=== PATIENT | male | born 1960 | race Caucasian/White ===

== ENCOUNTER 2024-04-11 07:56 | Inpatient (IN) ==
--- NOTE | 2024-04-01 15:36 | PAT Medication Instructions ---
Medication Instructions Date of Service April 01, 2024 Home Medications acetaminophen 500 mg capsule 1,000 mg PO Q6H PRN amlodipine 2.5 mg tablet (Norvasc) 2.5 mg PO HS ascorbic acid (vitamin C) 1,000 mg tablet (Vitamin C) 1 g PO QAM aspirin 81 mg tablet,delayed release 81 mg PO QAM cetirizine 10 mg tablet (Zyrtec) 10 mg PO QAM cholecalciferol (vitamin D3) 25 mcg (1,000 unit) tablet (Vitamin D3) 25 mcg PO QAM cyclobenzaprine 10 mg tablet 10 mg PO TID diclofenac sodium 1 % topical gel 2 g topical QID PRN diclofenac sodium 75 mg tablet,delayed release 75 mg PO BID escitalopram oxalate 10 mg tablet (Lexapro) 10 mg PO QAM famotidine 40 mg tablet (Pepcid) 40 mg PO HS lidocaine 5 % topical patch 1 patch topical DAILY PRN lisinopril 20 mg-hydrochlorothiazide 25 mg tablet 1 tab PO QAM metronidazole 0.75 % topical gel 1 applic topical DAILY PRN pregabalin 50 mg capsule (Lyrica) 50 mg PO BID simvastatin 10 mg tablet 10 mg PO HS ASK your surgeon for instructions diclofenac sodium 75 mg tablet,delayed release 75 mg PO BID ASK your prescriber and surgeon aspirin 81 mg tablet,delayed release 81 mg PO QAM STOP taking 24 hours before surgery diclofenac sodium 1 % topical gel 2 g topical QID PRN lidocaine 5 % topical patch 1 patch topical DAILY PRN metronidazole 0.75 % topical gel 1 applic topical DAILY PRN DO NOT take the morning of surgery ascorbic acid (vitamin C) 1,000 mg tablet (Vitamin C) 1 g PO QAM cetirizine 10 mg tablet (Zyrtec) 10 mg PO QAM cholecalciferol (vitamin D3) 25 mcg (1,000 unit) tablet (Vitamin D3) 25 mcg PO QAM lisinopril 20 mg-hydrochlorothiazide 25 mg tablet 1 tab PO QAM Take morning of surgery With a small sip of water, OTHERWISE NOTHING TO EAT OR DRINK AFTER MIDNIGHT: acetaminophen 500 mg capsule 1,000 mg PO Q6H PRN(if needed) cyclobenzaprine 10 mg tablet 10 mg PO TID escitalopram oxalate 10 mg tablet (Lexapro) 10 mg PO QAM pregabalin 50 mg capsule (Lyrica) 50 mg PO BID Take evening before surgery acetaminophen 500 mg capsule 1,000 mg PO Q6H PRN(if needed) amlodipine 2.5 mg tablet (Norvasc) 2.5 mg PO HS cyclobenzaprine 10 mg tablet 10 mg PO TID famotidine 40 mg tablet (Pepcid) 40 mg PO HS pregabalin 50 mg capsule (Lyrica) 50 mg PO BID simvastatin 10 mg tablet 10 mg PO HS Other Notes If you have any questions please call us at [phone] or [phone] or [phone] or [phone]
--- NOTE | 2024-04-03 13:35 | Anesthesiology Consultation ---
Date of Service April 03, 2024 Assessment & Plan (1) Encounter for pre-operative examination: - patient states he elected to set up a medical clearance 04/04/24, AKHIL Szymanski. Chart Review Chart Review: Pending: Refer to Additional Notes / Consult section and Patient seen in Pre Admission Testing Teaching & Discussion Pre-Anesthesia Teaching/Discussion Notes: Instructed NPO after midnight before surgery, except medications with 15 cc of water. Medication instructions provided according to the PAT guidelines. History Surgery Operation Date: 04/11/24 12:25 Proposed Procedures p L5-S1 Decompression and Fusion with Possible L4-L5, Spinal Cord Monitoring - Bruno Bernard, Height/Weight Height: 5 ft 11 in Weight: 142.5 kg Allergies Allergy/AdvReac Type Severity Reaction Status Date / Time alprazolam [From Xanax] AdvReac mood Verified 04/01/24 13:32 changes, angry, irritated Medications Home Medications Medication Instructions Recorded Confirmed Last Taken acetaminophen 500 mg capsule 1,000 mg PO Q6H PRN Pain 04/01/24 04/01/24 Unknown amlodipine 2.5 mg tablet (Norvasc) 2.5 mg PO HS 04/01/24 04/01/24 Unknown ascorbic acid (vitamin C) 1,000 mg 1 g PO QAM 04/01/24 04/01/24 Unknown tablet (Vitamin C) aspirin 81 mg tablet,delayed 81 mg PO QAM 04/01/24 04/01/24 Unknown release cetirizine 10 mg tablet (Zyrtec) 10 mg PO QAM 04/01/24 04/01/24 Unknown cholecalciferol (vitamin D3) 25 25 mcg PO QAM 04/01/24 04/01/24 Unknown mcg (1,000 unit) tablet (Vitamin D3) cyclobenzaprine 10 mg tablet 10 mg PO TID 04/01/24 04/01/24 Unknown diclofenac sodium 1 % topical gel 2 g topical QID PRN Pain 04/01/24 04/01/24 Unknown diclofenac sodium 75 mg 75 mg PO BID 04/01/24 04/01/24 Unknown tablet,delayed release escitalopram oxalate 10 mg tablet 10 mg PO QAM 04/01/24 04/01/24 Unknown (Lexapro) famotidine 40 mg tablet (Pepcid) 40 mg PO HS 04/01/24 04/01/24 Unknown lidocaine 5 % topical patch 1 patch topical DAILY PRN Pain 04/01/24 04/01/24 Unknown lisinopril 20 1 tab PO QAM 04/01/24 04/01/24 Unknown mg-hydrochlorothiazide 25 mg tablet metronidazole 0.75 % topical gel 1 applic topical DAILY PRN rosacea 04/01/24 04/01/24 Unknown pregabalin 50 mg capsule (Lyrica) 50 mg PO BID 04/01/24 04/01/24 Unknown simvastatin 10 mg tablet 10 mg PO HS 04/01/24 04/01/24 Unknown Past Medical History Medical History Anxiety and depression Difficult intravenous access Environmental and seasonal allergies GERD (gastroesophageal reflux disease) controlled, stable per pt Hyperlipidemia Hypertension controlled, stable per pt Lumbosacral radiculopathy Prediabetes diet controlled Pulmonary embolism 08/2023, 2/2 immobility for extended time, was on eliquis until 02/22/23 and [facility] puller over told him he would need to go back on the eliquis following his upcoming back surgery; f/u [facility] hematology Rosacea Sleep apnea CPAP, set at 9 Patient denies h/o stroke, seizures, heart attack, heart failure, or blood transfusions. Exercise / Class Metabolic Activity III < 4 Walking/Shop/Light housework (ambulates with walker, denies chest discomfort or shortness of breath with usual activities) Past Surgical History Surgical History History of colonoscopy Hx of left inguinal hernia repair Hx of right inguinal hernia repair Hx of vasectomy Status post myringotomy with tube placement of both ears Past Anesthesia History No Family Hx of Anesthesia Complications and Other (sister slow to wake up) History of PONV No Hx of PONV and No Hx of Motion Sickness Social History Smoking Status: Never smoker Do You Dip or Chew Tobacco: Yes (2-3 cans/week; advised) Hx Alcohol Use: Yes Alcohol type: beer alcohol intake frequency: holidays/special occasions only Hx Substance Use: No substance use type: does not use Review of Systems Patient denies chest pain, shortness of breath, dyspnea on exertion, fever, chills, cough, wheezing, or palpitations. Physical Exam Vital Signs Vitals BP 121/78 P 74 SP02 97% on RA RESP 18 Physical Patient resting comfortably in chair in no acute distress, alert and oriented, responding appropriately throughout visit Full cervical extension range of motion without pain TMD < 3 finger breadths Mallampati Score 3 Dentition: one cap and one broken tooth, denies loose teeth, implants or bridges Lungs: normal respiratory effort. Good air movement, clear throughout to auscultation, no adventitious breath sounds Cardiac: regular rate and rhythm, no murmurs noted Carotid arteries: negative bruit bilat Lab Results Anesthesia Preop Results Results Anesthesia Widget: WBC 5.96 K/ul (4.8-10.8) 04/03/24 Hgb 14.9 g/dl (14.0-18.0) 04/03/24 Hct 45.4 % (42.0-52.0) 04/03/24 Plt 254 K/uL (130-400) 04/03/24 Na 139 mmol/L (136-145) 04/03/24 K 4.3 mmol/L (3.5-5.1) 04/03/24 Cl 102 mmol/L (98-107) 04/03/24 CO2 32 mmol/L (21-32) 04/03/24 BUN 15 mg/dl (6-23) 04/03/24 Creat 0.92 mg/dl (0.6-1.4) 04/03/24 Glucose Level 98 mg/dl (70-99(Fasting)) 04/03/24 PT 10.9 Seconds (9.0-12.0) 04/03/24 PTT 25 Seconds (21-31) 04/03/24 INR 1.0 (0.9-1.1) 04/03/24 HA1c 5.8 % (4.5-5.6) H 04/03/24 Urine Color Yellow 04/03/24 Urine Appearance Clear (Clear) 04/03/24 Urine pH 6.5 (4.5-7.5) 04/03/24 Urine Specific Gillespie 1.009 (1.000-1.030) 04/03/24 Urine Protein Negative (Negative) 04/03/24 Urine Glucose (UA) Negative (Negative) 04/03/24 Urine Ketones Negative (Negative) 04/03/24 Urine Blood Negative (Negative) 04/03/24 Urine Nitrite Negative (Negative) 04/03/24 Urine Bilirubin Negative (Negative) 04/03/24 Urine Urobilinogen Negative (Negative) 04/03/24 Urine Leukocyte Esterase Negative (Negative) 04/03/24 Blood Type A Positive 04/03/24 Antibody Screen NEGATIVE 04/03/24 Testing Electrocardiogram Date: 08/26/23 NSR, rate 87 bpm Chest X-Ray Date: 08/26/23 No dense parenchymal consolidation, pleural effusion or pneumothorax. Other Testing PE CT 08/26/23 Predominantly right-sided lobar, segmental and subsegmental PE without evidence for right heart strain.
--- OUTSIDE RECORDS SUMMARY | 2024-04-11 08:39 | External Medical Summary | Summary of Care ---
Author Name Unknown Organization [facility] [address] [facility] [address] Phone [phone] Care Team Providers Care Transport Medic Name Role Phone Robert Szymanski MD Primary Care Provider Reason for Visit * Reason Onset Date Comments Nurse Documentation 04/10/2024 Encounter Details Date Type Department Care Team (Late st Contact Info) Description 04/10/2024 Telephone [facility] [place] [address] [facility] [place] [phone] Robert Szymanski MD 21 [facility] [place] [address] Nurse Documentation Allergies Active Allergy Reactions Criticality Noted Date Comments Benzodiazepines 01/15/2002 xanax - altered mood documented as of this encounter (statuses as of 04/10/2024) Medications Medication Sig Dispensed Refills Start Date End Date Status ASPIRIN EC 81 MG PO TBECIndications:HTN, goal below 140/90 1 TABLET DAILY 100 0 05/01/2007 Active Cholecalciferol (VITAMIN D) 1000 UNITS Tablet Take 1 Tablet by mouth in the morning and 1 Tablet before bedtime. Active cetirizine (ZYRTEC) 10 MG Tablet Take 1 Tablet by mouth in the morning. Active Sildenafil Citrate 100 MG Oral Tablet (Viagra) Take 1 Tab by mouth daily as needed for Erectile Dysfunction. As directed. 30 Tab 3 05/18/2021 Active Vitamin C ER 1000-100 MG Oral Tablet Extended Release Take by mouth. Acti ve Escitalopram Oxalate 10 MG Oral Tablet (Lexapro)Indications: Anxiety disorder, unspecified type Take 1 Tablet by mouth in the morning. 90 Tablet 3 10/15/2023 Active Acetaminophen 325 MG Oral Tablet (Tylenol) Take 1 Tablet by mouth as needed. Active Diclofenac Sodium 75 MG Oral Tablet Delayed Release (Voltaren)Indications :Spinal stenosis of lumbar region with neurogenic claudication Take 1 Tablet by mouth in the morning and 1 Tablet before bedtime. 180 Tablet 1 12/06/2023 Active Simvastatin 10 MG Oral Tablet (Zocor)Indications:Dy slipidemia TAKE 1 TABLET BY MOUTH EVERYDAY AT BEDTIME 90 Tablet 3 12/20/2023 Active Famotidine 40 MG Oral Tablet (Pepcid) TAKE 1 TABLET BY MOUTH EVERYDAY AT BEDTIME 90 Tablet 3 12/20/2023 Active metroNIDAZOLE 0.75 % External Gel (Metrogel)Indications :Rosacea Apply topically to affected area 2 times a day. Apply to face 45 g 2 12/28/2023 Active amLODIPine Besylate 2.5 MG Oral Tablet (Norvasc)Indications: HTN, goal below 140/90 TAKE 1 TABLET BY MOUTH EVERY DAY IN THE MORNING 90 Tablet 4 02/22/2024 Active Cyclobenzaprine HCl 10 MG Oral Tablet (Flexeril)Indications :Back muscle spasm TAKE 1 TABLET BY MOUTH IN THE MORNING, 1 AT NOON AND 1 BEFORE BEDTIME 90 Tablet 1 02/25/2024 Active Pregabalin 50 MG Oral Capsule (Lyrica)Indications:S ramses stenosis of lumbar region with neurogenic claudication Take 1 Capsule by mouth in the morning and 1 Capsule before bedtime. 60 Capsule 1 03/25/2024 Active Lidocaine 5 % External Patch (Lidoderm)Indications :Lumbar radiculopathy PLACE 1 PATCH OVER 12 HOURS TOPICALLY ON THE SKIN DAILY. 30 Patch 04/03/2024 Active Lisinopril-hydroCHLOR Othiazide 20-25 MG Oral TabletIndications:HTN , goal below 140/80 TAKE 1 TABLET BY MOUTH EVERY DAY 90 Tablet 3 04/01/2024 Active Diclofenac Sodium 1 % External Gel (Voltaren)Indications :Arthritis of knee Apply topically to affected area 2 times a day as needed for Pain, Mild. Apply to knees 150 g 3 04/04/2024 Active documented as of this encounter (statuses as of 04/10/2024) Active Problems Problem Noted Date Diagnosed Date Lumbar radiculopathy 12/06/2023 Spinal stenosis of lumbar re gion with neurogenic claudication 12/06/2023 Prediabetes 08/23/2020 Overview: Per Prediabetes protocol Morbid obesity with BMI of 45.0-49.9, adult 07/11 Overview: Per Obesity protocol #1 - Per Obesity Taxonomy ICD-10 update of inactive term MARGIE on CPAP 11/17/2014 Low testosterone 01/14/2014 Dyslipidemia 01/13/2014 Vitamin D deficiency 01/13/2012 Overview: Add oral 01/19 HTN, goal below 140/90 07/11/2010 Overview: Lisinopril hct. Basic, ua 07/21 Shoulder joint pain 05/01/2007 Overview: Ibuprofen prn 06/16 neg EMG. NOrmal MRI cspine . PT helped and decreasing chol med Tobacco use disorder 04/30/2007 Overview: Chew. Ua 09/19 DIVERTICULOSIS OF COLON 07/17/2006 Overview: Found on colonoscopy-07/09/06 HEMORRHOIDS, INTERNAL W/O COMPLICATIONS 07/17/20 Overview: Found on colonoscopy 07/09/06 Esophageal reflux Overview: Ranitidine prn documented as of this encounter (statuses as of 04/10/2024) Resolved Problems Problem Noted Date Diagnosed Date Resolved Date Acute anterior epistaxis 01/14/2019 Body mass index (BMI) of 40. 0 to 44.9 in adult 01/29/2018 07/26/2018 Overview: Per Obesity protocol #1 - Per Obesity Taxonomy ICD-10 update of inactive term Left inguinal hernia 03/01/2015 018 Dyslipidemia, goal LDL below 130 07/09/2013 01/13/2014 MARGIE (obstructive sleep apnea) 01/10/2012 07/10/2018 Overview: 12/20 mod but severe during REM. Severe snoring and desat. CPAP Respiratory abnormality 01/04/201212/09 Overview: 12/20 spirogram mild obstuction, no response to bronchodilator. Small airway involvement. ICD-10 update of inactive term Edema 02/18/2010 12/19/2017 Overview: Remote sleep eval. 02/17 noct pulse ox resembled margie with drop to 71%; repeat 01/18 similar. Echo mild left atrial and left ventricular enlargement. USing cpap Body mass index (BMI) of 45.0-49.9 in adult 12/07/2009 01/31/2018 Overview: Per Obesity Taxonomy ICD-10 update of inactive term Urinary frequency 04/07/2008 06/20/2017 Overview: Urology. Cardura- self d/c due to orthostasis Family history of diabetes mellitus 05/01/2007 01/05/2009 Hemorrhage of rectum and anus 07/17/2006 05/01/2007 Overview: [id number] [id number]-[id number]-Sbgrv 2 internal hemorrhoids Diverticulosis of the sigmoid colon Repeat in 10 years Dyslipidemia, goal LDL below 100 04/22/2003 07/09/2013 Overview: Zocor 20 myalgia. Try 10 mg Morbid obesity, BMI not known 12/09/2002 12/07/2009 Overview: Per Obesity Taxonomy Cervicalgia 08/09/2007 Carpal tunnel syndrome 10/09 Overview: Paressthesias, but EMG Neg. Splints HTN, goal below 130/80 07/11 Overview: Lisinopril-hct, asa. Basic, UA 09/19 documented as of this encounter (statuses as of 04/10/2024) Immunizations Name Administration Dates Next Due COVID-19 mRNA, LNP-s, No Pre serve, 2-Dose Series (Workables) 07/30/2021,12/21/2020,11/26/2020 COVID-19, LNP-s, No Preserve , Conrad-sucrose, Ages 12+ (Pfizer) 01/17/2022 Covid-19, Mrna, Lnp-s, Pf, B ivalent, 30 Mcg, IM, 12 yrs and above (Pfizer) 06/29/2022 Pneumococcal Polysaccharide PPV23 (Pneumovax) 06/13/2006 Seasonal Influenza, PF, 6 M & above, IM , (FluLaval or Fluzone) 06/18/2023,07/15/2022,07/18/2021,07/14,07/29/2019,07/10/2018,06/20/2017 Seasonal Influenza, Quadriva lent, No Preserve, IM 06/07/2016,06/23/2015 Seasonal Influenza, Split, I IV3, With Preserve, Inj 07/22/2014,07/09/2013,07/26/2011,07/11,06/22/2008,06/13/2006 TDAP (age 10 and older)(Boostrix) 06/20/2017 TDAP, Age 7 and older, IM (Adacel) 04/08/2008 Zoster Vaccine Recombinant (Shingrix) 01/15/2020 ,10/14/2019 documented as of this encounter Social History Tobacco Use Types Packs/Day Years Used Date Smoking Tobacco: Never Cigarettes Smokeless Tobacco: Current Snuff Comments:Chew Alcohol Use Standard Drinks/Week Comments Yes 2 (1 standard drink = 0.6 oz pur e alcohol) AUDIT-C Answer Date Recorded Frequency of Alcohol Consumption 4 or more times a week 01/07/2019 Average Number of Drinks 1 or 2 019 Frequency of Binge Drinking Less than monthly PHQ-2 Answer Date Recorded PHQ Adult Total Score 0 06/18/2023 Hunger Vital Sign Answer Date Recorded Within the past 12 months, y ou worried that your food would run out before you got the money to buy more. Never true 01/25/20 24 Within the past 12 months, t he food you bought just didn't last and you didn't have money to get more. Never true 01/25/2024 Childcare Answer Date Recorded Do you feel overwhelmed with taking care of a child, family member or friend? No 01/25/2024 Does your family need help f inding childcare? (Household - for ages 0-17 years) Not on file 01/25/2024 Clothing Answer Date Recorded Have you been unable to get clothing when it was really needed? No 01/25/2024 Is your family able to get c lothes or diapers when needed? (Household - for ages 0-17 years) Not on file 01/25/2024 Personal Safety Answer Date Recorded Do you feel unsafe or have concerns for your saf ety? No 01/25/2024 Do you have concerns for you r family's safety? (Household - for ages 0-17 years) Not on file 01/25/2024 Utilities Answer Date Recorded Do you have trouble paying y our heating, water, or electric bill? No 01/25/2024 Is your family able to pay t he heat, water, or electric bill? (Household - for ages 0-17 years) Not on file 01/25/2024 Does your family have access to good internet? (Household - for ages 0-17 years) Not on file 01/25/2024 Employment Status Answer Date Recorded Are you unemployed or without regular income? No 01/25/2024 Does the household have a re gular source of income? (Household - for ages 0-17 years) Not on file 01/25/2024 Social Connections Answer Date Recorded How often do you feel lonely or isolated from th ose around you? Never 01/25/2024 Financial Resource Strain Answer Date R ecorded Do you have any trouble payi ng for your medications, or do you think you might in the future? No 01/25/2024 Does your family have troubl e paying for medicine? (Household - for ages 0-17 years) Not on file 01/25/2024 Transportation Needs Answer Date Record ed READ ONLY Do you have troubl e getting a ride to medical visits or work? Never True 01/25/2024 Does your family have a hard time getting a ride to doctors visits? (Household - for ages 0-17 years) Not on file 01/25/2024 Has lack of transportation k ept you from medical appointments, meetings, work, or from getting things needed for daily living? Check all that apply. (Adult - for ages 18 years and over) Not on file 01/25/2024 Do you (or your family) have trouble finding or paying for a ride (transportation)? (Household - for ages 0-17 years) Not on file 01/25/2024 Housing Stability Answer Date Recorded Do you currently live in a s helter or have no steady place to sleep at night? No 01/25/2024 READ ONLY Do you think you a re at risk of becoming homeless? No 01/25/2024 Does your family worry about paying for your home or becoming homeless? (Household - for ages 0-17 years) Not on file 0 01/25/2024 Are you homeless or worried that you might be in the future? (Adult - for ages 18 years and over) Not on file Are you (or your family) janeen eless or worried that you might be in the future? (Household - for ages 0-17 years) Not on file Food Insecurity Answer Date Recorded Do you need food for this week? No 01/25/2024 Are you able to get enough f ood for your family? (Household - for ages 0-17 years) Not on file 01/25/2024 Does your family need food t his week? (Household - for ages 0-17 years) Not on file 01/25/2024 Do you always have enough fo od for your family? (Household - for ages 0-17 years) Not on file 01/25/2024 Sex and Gender Information Value Date Recorded Sex Assigned at Male 01/07/2019 5:44 PM EDT Gender Identity Male 01/07/2019 5:44 PM EDT Sexual Orientation Straight 01/07/2019 5: 44 PM EDT Job Start Date Occupation Industry Not on file Not on file Not on file documented as of this encounter Miscellaneous Notes * Telephone Encounter - Adela Rodriguez CMA - 04/10/2024 2:34 PM EDT Pt had pre op appt with Annabel on 04/04. Form was completed and faxed by Dariela Mcdaniel LPN that day. I received a duplicate pre op form for this pt. Form not yet in scans. Called [facility] and spoke with Bety who advised that they have everything they need including completed pre op form. The duplicate form is not needed and can be shredded. documented in this encounter Plan of Treatment Upcoming Encounters Date Type Department Care Team (Late st Contact Info) Description 05/14/2024 8:00 AM EDT Laboratory Laboratory, [facility] [address] [place] [phone] [facility], Lab [address] [place] [id number] 05/28/2024 8:00 AM EDT Office Visit Pharmacy, [place] [address] [place] [address] [place] [facility] [address] [place] [address] 06/04/2024 9:00 AM EDT Telemedicine Hematology/Oncology, [facility] [address] [place] [address] Lion Hernández MD [address] [place] [phone] 06/13/2024 2:40 PM EDT Office Visit [facility] [address] [facility] [phone] Robert Szymans[facility] [address] [facility] [address] 09/08/2024 7:45 AM EST Office Visit Ophthalmology, [facility] [address] [facility] [place] [address] Cessna, Christopher T, DO [address] [place] [address] 01/14/2025 12:50 PM EDT Office Visit Dermatology, [facility] [address] [place] [address] [place] [address] Abril Garrett PA-C [address] [place] [address] Scheduled Procedures Name Priority Associated Diagnoses Date/Ti me COLONOSCOPY FLEXIBLE PROXIMAL DIAGNOSTIC Recall History of colon polyps Health Maintenance Due Date Last Done Comments HIV Screening 1976 Hepatitis C Screening 11/19/1979 Cologuard 2006 Sigmoidoscopy 2006 Fecal Occult Blood Test 03/05/2021 03/05/2020, 06/14 Albumin/Creatinine Ratio 07/29/2022 07/29/2019 COVID-19 Vaccine ( season) 2023 06/29/2022, 01/17/2022, 07/30/2021, Additional history exists Influenza Vaccine (FLU shot) (#1) 2024 06/18/2023, 07/15/2022, 07/18/2021, Additional history exists Depression Screening 06/18/2024 06/18/2023 HbA1c 12/04/2024 12/05/2023, 09/10, 06/18/2023, Additional history exists GFR 12/05/2024 12/06/2023, 11/09, 08/26/2023, Additional history exists DTaP,Tdap,and Td Vaccines (3 - Td or Tdap) 06/20/2027 06/20/2017, 04/08/2008 Colonoscopy 05/07/2028 05/07/2023, 04/11, 07/07/2016, Additional history exists Colorectal Cancer Screening 05/07/2028 Lipid Panel 12/04/2028 12/05/2023, 05/2023, 06/11/2021, Additional history exists Pneumococcal Vaccine: Pediatrics (0 to 5 Years) and At-Risk Patients (6 to 64 Years) Aged Out 06/13/2006 No longer eligible based on patient's age to complete this topic Zoster Vaccines Completed 01/15/2020, 10/14/2019 RETIRED - COLONOSCOPY-EVERY 5 YRS AGES 18-100 Discontinued 05/07/2023, 05/07/2023, 07/07/2016, Additional history exists HPV (Gardasil) Vaccine Aged Out No lo nger eligible based on patient's age to complete this topic Hepatitis B Vaccine Aged Out No longe r eligible based on patient's age to complete this topic MENINGOCOCCAL (MENACTRA/MENVEO) Aged Out No longer eligible based on patient's age to complete this topic documented as of this encounter Medical Devices Implanted Type Area Geriatric Aide Device Identifier Shelf Expiration Date Model / Serial / Lot Mesh [id number] Implanted:Qty: 1 on 03/01/2015 by Bruno Cifuentes MD at [facility] Left: Groin [employer] / [id number] / [id number] documented as of this encounter Advance Directives Documents on File Type Date Recorded Patient Rehabilitator Expl anation Advance Directives and Living Will 04/05/2018 LIVING WILL LETTER O F MEDICAL NECESSITY FLEX GAR FLEX IT * Full Code (Latest Code Status on File) Date Activated Date Inactivated Comments 05/07/2023 11:15 AM 05/07/2023 5:45 PM This order reflects the patients wishes and were consensually agreed upon. Question Answer Comments Discussion of Advance Direct rhoda occurred with: Not Discussed due to patient's condition Care Teams Transport Medic Relationship Specialty Start Date End Date Robert Szymanski MD [address] [place] [id number] PCP - General Family Medicine 06/18/23 documented as of this encounter
--- OUTSIDE RECORDS SUMMARY | 2024-04-11 08:39 | External Medical Summary | Summary of Care ---
Author Name Unknown Organization [facility] Address [address] [place] [address] Phone [phone] Care Team Providers Care Mattress Filler Name Role Phone Robert Szymanski MD Primary Care Provider Reason for Visit * Reason Comments pre-op exam Encounter Details Date Type Department Care Team (Late st Contact Info) Description 04/04/2024 12:20 PM EDT Office Visit [facility] [address] [facility] [place] [phone] Annabel Peck CRNP [address] [place] [address] Preop examination*; Spinal stenosis of lumbar region with neurogenic claudication; HTN, goal below 140/90; Arthritis of knee; MARGIE on CPAP; Morbid obesity with BMI of 45.0-49.9, adult (HCC) Allergies Active Allergy Reactions Criticality Noted Date Comments Benzodiazepines 01/15/2002 xanax - altered mood documented as of this encounter (statuses as of 04/04/2024) Medications Medication Sig Dispensed Refills Start Date End Date Status ASPIRIN EC 81 MG PO TBECIndications:HTN , goal below 140/90 1 TABLET DAILY 100 [...] Oral Tablet Extended Release Take by mouth. Active Escitalopram Oxalate 10 MG Oral Tablet (Lexapro)Indication s:Anxiety disorder, unspecified type Take 1 Tablet by mouth in the morning. 90 Tablet 3 10/15/2023 Active Acetaminophen 325 MG Oral Tablet (Tylenol) Take 1 Tablet by mouth as needed. Active Diclofenac Sodium 75 MG Oral Tablet Delayed Release (Voltaren)Indicatio ns:Spinal stenosis of lumbar region with neurogenic claudication Take 1 Tablet by mouth in the morning and 1 Tablet before bedtime. 180 Tablet 1 12/06/2023 Active Simvastatin 10 MG Oral Tablet (Zocor)Indications: Dyslipidemia TAKE 1 TABLET BY MOUTH EVERYDAY AT BEDTIME 90 Tablet 3 12/20/2023 Active Famotidine 40 MG Oral Tablet (Pepcid) TAKE 1 TABLET BY MOUTH EVERYDAY AT BEDTIME 90 Tablet 3 12/20/2023 Active metroNIDAZOLE 0.75 % External Gel (Metrogel)Indicatio ns:Rosacea Apply topically to affected area 2 times a day. Apply to face 45 g 2 12/28/2023 Active amLODIPine Besylate 2.5 MG Oral Tablet (Norvasc)Indication s:HTN, goal below 140/90 TAKE 1 TABLET BY MOUTH EVERY DAY IN THE MORNING 90 Tablet 4 02/22/2024 Active Cyclobenzaprine HCl 10 MG Oral Tablet (Flexeril)Indicatio ns:Back muscle spasm TAKE 1 TABLET BY MOUTH IN THE MORNING, 1 AT NOON AND 1 BEFORE BEDTIME 90 Tablet 1 02/25/2024 Active Pregabalin 50 MG Oral Capsule (Lyrica)Indications :Spinal stenosis of lumbar region with neurogenic claudication Take 1 Capsule by mouth in the morning and 1 Capsule before bedtime. 60 Capsule 1 03/25/2024 Active Lidocaine 5 % External Patch (Lidoderm)Indicatio ns:Lumbar radiculopathy PLACE 1 PATCH OVER 12 HOURS TOPICALLY ON THE SKIN DAILY. 30 Patch 04/03/2024 Active Lisinopril-hydroCHL OROthiazide 20-25 MG Oral TabletIndications:H TN, goal below 140/80 TAKE 1 TABLET BY MOUTH EVERY DAY 90 Tablet 3 04/01/2024 Active Diclofenac Sodium 1 % External Gel (Voltaren)Indicatio ns:Arthritis of knee Apply topically to affected area 2 times a day as needed for Pain, Mild. Apply to knees 150 g 3 04/04/2024 Active Diclofenac Sodium 1 % External Gel (Voltaren)Indicatio ns:Arthritis of knee Apply topically to affected area 2 times a day as needed for Pain, Mild. Apply to knees 150 g 3 03/03/2024 4 Discontinue d(Refill) documented as of this encounter (statuses as of 04/04/2024) Active Problems Problem Noted Date Diagnosed Date [...] as of this encounter (statuses as of 04/04/2024) Resolved Problems Problem Noted Date Diagnosed Date [...] of rectum and anus 07/17/2006 05/01/2007 Overview: [id number] 2 internal hemorrhoids Diverticulosis of the sigmoid [...] as of this encounter (statuses as of 04/04/2024) Immunizations Name Administration Dates Next Due COVID-19 mRNA, LNP-s, No Pre serve, 2-Dose Series (mon.ki) 07/30/2021,12/21/2020,11/26/2020 COVID-19, LNP-s, No Preserve , Conrad-sucrose, Ages 12+ (mon.ki) 01/17/2022 Covid-19, Mrna, Lnp-s, Pf, B ivalent, 30 Mcg, IM, 12 yrs and above (mon.ki) 06/29/2022 Pneumococcal Polysaccharide PPV23 (Pneumovax) 06/13/2006 Seasonal [...] Tobacco: Never Cigarettes Smokeless Tobacco: Current Snuff Tobacco Cessation:Ready to Q uit: Not Asked; Counseling Given: Not Answered Comments:Chew Alcohol Use Standard Drinks/Week Comments Yes [...] on file documented as of this encounter Last Filed Vital Signs Vital Sign [place] Time Taken Comments Blood Pressure 140/82 04/04/2024 12:13 PM EDT Pulse 86 04/04/2024 12:13 PM EDT Temperature 37 C (98.6 F) 04/04/2024 12: 13 PM EDT Respiratory Rate 16 04/04/2024 12:1 3 PM EDT Oxygen Saturation 97% 04/04/2024 12: 13 PM EDT Inhaled Oxygen Concentration - - Weight 141.8 kg (312 lb 9.6 oz) 024 12:13 PM EDT Height 175.3 cm (5' 9") 04/04/2024 12:1 3 PM EDT Body Mass Index 46.16 04/04/2024 12:13 PM EDT documented in this encounter Progress Notes * Annabel Peck CRNP - 04/04/2024 12:22 PM EDT Images from the original note were not included. Pre-Operative Medical Evaluation Procedure Information Type of Surgery: Back surgery Referring Physician / Surgeon: Dr. Bernard. Date of procedure: 04/11/2024 Brief History of Present Illness: Planning for back surgery having rods placed and spacers per pt. He has low back pain that radiatesto his hips and down his legs to the calves. Also has numbness in the legs as well. Reports decreased mobility and difficulty with ambulation. Uses cane and walker for ambulation. He is unable to go up and down steps due to this. Symptoms have been gradually progressive over time. Review of Systems Constitutional: Positive for fatigue. Negative for appetite change. Respiratory: Negative for shortness of breath. Cardiovascular: Negative for chest pain and palpitations. Gastrointestinal: Negative for constipation and diarrhea. Genitourinary: Negative for difficulty urinating. Musculoskeletal: Positive for back pain and gait problem. Skin: Negative for rash and wound. Neurological: Negative for dizziness and light-headedness. Psychiatric/Behavioral: Negative for sleep disturbance. Medical History Problem List: Lumbar radiculopathy (12/06/2023) Spinal stenosis of lumbar region with neurogenic claudication (2023) Prediabetes (08/23/2020) Acute anterior epistaxis (01/14/2019) Morbid obesity with BMI of 45.0-49.9, adult ([facility]) (07/22/2018) Body mass index (BMI) of 40.0 to 44.9 in adult ([facility]) (01/29/2018) Left inguinal hernia (03/01/2015) MARGIE on CPAP (11/17/2014) Low testosterone (01/14/2014) Dyslipidemia (01/13/2014) Dyslipidemia, goal LDL below 130 (07/09/2013) Vitamin D deficiency (01/13/2012) MARGIE (obstructive sleep apnea) (01/10/2012) Respiratory abnormality (01/04/2012) HTN, goal below 140/90 (07/11/2010) Edema (02/18/2010) Body mass index (BMI) of 45.0-49.9 in adult ([facility]) (12/07/2009) Urinary frequency (04/07/2008) Shoulder joint pain (05/01/2007) Family history of diabetes mellitus (05/01/2007) Tobacco use disorder (04/30/2007) Hemorrhage of rectum and anus (07/17/2006) DIVERTICULOSIS OF COLON (07/17/2006) HEMORRHOIDS, INTERNAL W/O COMPLICATIONS (07/17/2006) Dyslipidemia, goal LDL below 100 (04/22/2003) Morbid obesity, BMI not known ([facility]) (12/09/2002) Cervicalgia Carpal tunnel syndrome Esophageal reflux HTN, goal below 130/80 Current Medications Lidocaine 5 % External Patch (Lidoderm), 1 Patch, Transdermal, Q24H Lisinopril-hydroCHLOROthiazide 20-25 MG Oral Tablet, TAKE 1 TABLET BY MOUTH EVERY DAY Pregabalin 50 MG Oral Capsule (Lyrica), 50 mg, Oral, BID(AM/PM) Diclofenac Sodium 1 % External Gel (Voltaren), Apply topically to affected area 2 times a day as needed for Pain, Mild. Apply to knees Cyclobenzaprine HCl 10 MG Oral Tablet (Flexeril), TAKE 1 TABLET BY MOUTH IN THE MORNING, 1 AT NOON AND 1 BEFORE BEDTIME amLODIPine Besylate 2.5 MG Oral Tablet (Norvasc), TAKE 1 TABLET BY MOUTH EVERY DAY IN THE MORNING Famotidine 40 MG Oral Tablet (Pepcid), TAKE 1 TABLET BY MOUTH EVERYDAY AT BEDTIME Diclofenac Sodium 75 MG Oral Tablet Delayed Release (Voltaren), 75 mg, Oral, BID(AM/PM) Acetaminophen 325 MG Oral Tablet (Tylenol), 325 mg, Oral, PRN Escitalopram Oxalate 10 MG Oral Tablet (Lexapro), 10 mg, Oral, Daily(AM) Vitamin C ER 1000-100 MG Oral Tablet Extended Release, Take by mouth. Sildenafil Citrate 100 MG Oral Tablet (Viagra), 100 mg, Oral, Daily PRN cetirizine (ZYRTEC) 10 MG Tablet, 10 mg, Oral, Daily(AM) Cholecalciferol (VITAMIN D) 1000 UNITS Tablet, 1 Tablet, Oral, BID(AM/PM) ASPIRIN EC 81 MG PO TBEC, 1 TABLET DAILY metroNIDAZOLE 0.75 % External Gel (Metrogel), Apply topically to affected area 2 times a day. Applyto face Simvastatin 10 MG Oral Tablet (Zocor), TAKE 1 TABLET BY MOUTH EVERYDAY AT BEDTIME Allergies: Benzodiazepines Past Medical History: has a past medical history of Acute anterior epistaxis (01/14/2019), Backache, Carpal tunnel syndrome, Cervicalgia, Esophageal reflux, Eye injury (2018), Hemorrhage of rectum and anus (07/17/2006), HTN, goal below 140/90, Morbid obesity, BMI not known (HCC), and Obstructive sleep apnea (adult) (pediatric). Past Surgical History: has a past surgical history that includes vasectomy; colonoscopy (06/2006); Repair Initial InguinalHernia Reducible Age 5 or More (Right, 11/2010); stress test (12/2011); Repair Initial Inguinal Hernia Reducible Age 5 or More (Left, 03/01/2015); Colonoscopy, Diagnostic (Rectum) (N/A, 07/07/2016); Colonoscopy, Diagnostic (Rectum) (N/A, 05/07/2023); Inject Dx/Ther Substance Interlaminar Lumbar/Sacral W Image Guide (N/A, 06/28/2023); and other (information). Social History: reports that he has never smoked. His smokeless tobacco use includes snuff. He reports current alcohol use of about 2.0 standard drinks of alcohol per week. He reports that he does not use drugs. Family History: family history includes Cataracts in his father and mother; Diabetes in his father; Glaucoma in hissister; Hypertension in his brother, mother, sister, and sister; No Past Hx in an other family member; Other in an other family member. Anesthesia History Type of Anesthesia: MAC-Monitored Anesthesia Care, Local, and unsure about other types Anesthesia reaction: No History of surgical complications: None Personal history of venous thromboembolic disease: history of PE was on Eliquis until 02/23 when it was d/c'd by the surgeon. Physical Exam Vitals: 04/04/24 1213 Temp: 37 C (98.6 F) Pulse: 86 Resp: 16 SpO2: 97% BP: 140/82 BMI: 46.14 Physical Exam Vitals and nursing note reviewed. Constitutional: General: He is not in acute distress. Appearance: Normal appearance. He is obese. He is not ill-appearing. HENT: Head: Normocephalic and atraumatic. Right Ear: Tympanic membrane and ear canal normal. Left Ear: Tympanic membrane and ear canal normal. Nose: Nose normal. No congestion. Mouth/Throat: Mouth: Mucous membranes are moist. Pharynx: Oropharynx is clear. No oropharyngeal exudate or posterior oropharyngeal erythema. Eyes: Extraocular Movements: Extraocular movements intact. Cardiovascular: Rate and Rhythm: Normal rate and regular rhythm. Heart sounds: Normal heart sounds. No murmur heard. No friction rub. No gallop. Pulmonary: Effort: Pulmonary effort is normal. No respiratory distress. Breath sounds: Normal breath sounds. No wheezing, rhonchi or rales. Abdominal: General: Bowel sounds are normal. Palpations: Abdomen is soft. Musculoskeletal: Cervical back: Neck supple. No tenderness. Lymphadenopathy: Cervical: No cervical adenopathy. Skin: General: Skin is warm and dry. Neurological: Mental Status: He is alert and oriented to person, place, and time. Motor: Weakness present. Gait: Gait abnormal (slow, unsteady, cane or walker). Labs reviewed and are significant for: preop labs obtained at [facility], not available for review. CBC and CMP from November, unremarkable. EKG by my review is significant for: EKG 08/2023 NSR. Surgical Risk Scoring Revised Cardiac Risk Index (RCRI) High-risk type of surgery (examples include vascular and any open intraperitoneal or intrathoracic procedures): 0=No History of ischemic heart disease (history of myocardial infarction or positive exercise test, current compliant of chest pain considered to be secondary to myocardia ischemia, use of nitrate therapy, or ECG with pathological Q waves; do not count prior coronary revascularization procedure unless one of the other criteria for ischemic heart disease is present): 0=No History of heart failure: 0=No History of cerebrovascular disease: 0=No Diabetes mellitus requiring treatment with insulin: 0=No Preoperative serum creatinine >2.0 mg/dL (177 micromol/L): 0=No Pt has revised cardiac index score of: No Risk Factors- 0.4% (95% CI: 0.1-0.8) Screening for Obstructive Sleep Apnea (STOP-BANG) Do you Snore loudly? 0=No Do you often feel Tired, Fatigued, or Sleep? 1=Yes Has anyone Observed you Stop Breathing or Choking/Gasping during sleep? 0=No Do you have or are you being treated for High Blood Pressure? 1=Yes BMI over 35? 1=Yes Age older than 50? 1=Yes Neck size large? (For males - 17 inches or larger, For females - 16 inches or larger) 1=Yes Male? 1=Yes Score 0-2:low risk MARGIE, 3-4: intermediate risk of MARGIE, 5-8: high risk MARGIE Wears CPAP Assessment and Plan Preop examination Per RCRI patient is low risk for proposed procedure. Spinal stenosis of lumbar region with neurogenic claudication Planning for surgery. HTN, goal below 140/90 At goal. Continue current medications. Arthritis of knee Refilled. - Diclofenac Sodium 1 % External Gel (Voltaren); Apply topically to affected area 2 times a day as needed for Pain, Mild. Apply to knees MARGIE on CPAP Nightly CPAP. Morbid obesity with BMI of 45.0-49.9, adult (HCC) Surgical Risk Assessment Patient is low medical risk for the listed procedure. Medication adjustments: Per surgery Additional consults or testing: None documented in this encounter Nursing Notes * Dariela Radford LPN - 04/04/2024 12:12 PM EDT Chief Complaint Patient presents with pre-op exam Pt is scheduled for back surgery at [facility] 04/[address] Bernard. States he had labs done at [place] yesterday. documented in this encounter Plan of Treatment Upcoming Encounters Date Type Department Care Team (Late st Contact Info) Description 05/14/2024 8:00 AM EDT Laboratory [facility], [facility] [address] [facility] [phone] [facility] [address] [facility] [address] 05/28/2024 8:00 AM EDT Office [facility], [place] [facility] [address] [address] [facility] [address] 06/04/2024 9:00 AM EDT Telemedicine Hematology/Oncology, [facility] [address] [facility] [place] [address] Lion Hernández MD [address] [facility] [phone] 06/13/2024 2:40 PM EDT Office Visit [facility] [phone] Robert Szymanski MD [address] [facility] [address] 09/08/2024 7:45 AM EST Office Visit Ophthalmology, [facility] [address] [place] [address] Angel Gan, DO [address] [place] [address] 01/14/2025 12:50 PM EDT Office Visit Dermatology, [address] [place] [address] Abril Garrett PA-C [address] [place] [address] Scheduled Procedures Name Priority Associated Diagnoses Date/Ti [...] Discontinued 05/07/2023, 05/07/2023, 07/07/2016, Additional history exists *BASELINE EKG FOR HTN Completed 08/25/2023 , 12/01/2011, 01/23/2011 HPV (Gardasil) Vaccine Aged Out No lo nger eligible based on patient's age to complete this topic Hepatitis B Vaccine Aged Out No longe r eligible based on patient's age to complete this topic MENINGOCOCCAL (MENACTRA/MENVEO) Aged Out No longer eligible based on patient's age to complete this topic documented as of this encounter Medical Devices Implanted Type Area Skoog Patching Machine Operator Device Identifier Shelf Expiration Date Model / Serial / Lot Mesh 3x6 Implanted:Qty: 1 on 03/01/2015 by Bruno Cifuentes MD at OR [facility] Left: Groin INACTIVE [employer] / [id number] / [id number] documented as of this encounter Visit Diagnoses Diagnosis Preop examination- Primary Preoperative examination, unspecified Spinal stenosis of lumbar region with neurogenic claudication Spinal stenosis, lumbar region, with neurogenic claudication HTN, goal below 140/90 Unspecified essential hypertension Arthritis of knee Unspecified arthropathy, lower leg MARGIE on CPAP Obstructive sleep apnea (adult) (pediatric) Morbid obesity with BMI of 45.0-49.9, adult (HCC) Morbid obesity documented in this encounter Advance Directives Documents on File Type Date Recorded Patient Clinical Psychologist Licensed Expl anation Advance Directives and Living Will [...] Discussed due to patient's condition Care Teams Mattress Filler Relationship Specialty Start Date End Date Robert Szymanski MD [address] [place] [address] PCP - General Family Medicine 06/18/23 documented as of this encounter
--- OUTSIDE RECORDS SUMMARY | 2024-04-11 08:39 | External Medical Summary | Summary of Care ---
Author Name Unknown Organization [facility] Address [address] [place] [address] Phone [phone] Care Team Providers Care Environmental Health Manager Name Role Phone Robert Szymanski MD Primary Care Provider Reason for Visit * Reason Comments pre-op exam Encounter Details Date Type Department Care Team (Late st Contact Info) Description 04/04/2024 12:20 PM EDT Office Visit [facility] [address] [facility] [place] [phone] Annabel Peck CRNP [address] [facility] [place] [address] Preop examination*; Spinal stenosis of [...] Dyslipidemia, goal LDL below 130 07/09/2013 01/13/2014 AMRGIE (obstructive sleep apnea) 01/10/2012 07/10/2018 Overview: 12/20 [...] of rectum and anus 07/17/2006 05/01/2007 Overview: [id number] imknpljrgo-eirqdxqspwd-Wmtxu 2 internal hemorrhoids Diverticulosis of the sigmoid [...] mRNA, LNP-s, No Pre serve, 2-Dose Series (TheySay) 07/30/2021,12/21/2020,11/26/2020 COVID-19, LNP-s, No Preserve , Conrad-sucrose, Ages 12+ (TheySay) 01/17/2022 Covid-19, Mrna, Lnp-s, Pf, B ivalent, 30 Mcg, IM, 12 yrs and above (TheySay) 06/29/2022 Pneumococcal Polysaccharide PPV23 (Pneumovax) 06/13/2006 Seasonal Influenza, PF, 6 M & above, IM , (FluLaval or Fluzone) 06/18/2023,07/15/2022,07/18/2021,07/14,07/29/2019,07/10/2018,06/20/2017 Seasonal Influenza, Quadriva lent, No Preserve, IM 06/07/2016,06/23/2015 Seasonal Influenza, Split, I IV3, With Preserve, Inj 07/22/2014,07/09/2013,07/26/2011,07/11,06/22/2008,06/13/2006,07/13/2003 TDAP (age 10 and older)(Boostrix) 06/20/2017 TDAP, [...] Morbid obesity with BMI of 45.0-49.9, adult ([facility]) (07/22/2018) Body mass index (BMI) of 40.0 to 44.9 in adult ([facility]) (01/29/2018) Left inguinal hernia (03/01/2015) MARGIE on CPAP (11/17/2014) Low testosterone (01/14/2014) Dyslipidemia (01/13/2014) Dyslipidemia, goal LDL below 130 (07/09/2013) Vitamin D deficiency (01/13/2012) MARGIE (obstructive sleep apnea) (01/10/2012) Respiratory abnormality (01/04/2012) HTN, goal below 140/90 (07/11/2010) Edema (02/18/2010) Body mass index (BMI) of 45.0-49.9 in adult ([facility]) (12/07/2009) Urinary frequency (04/07/2008) Shoulder joint pain (05/01/2007) Family history of diabetes mellitus (05/01/2007) Tobacco use disorder (04/30/2007) Hemorrhage of rectum and anus (07/17/2006) DIVERTICULOSIS OF COLON (07/17/2006) HEMORRHOIDS, INTERNAL W/O COMPLICATIONS (07/17/2006) Dyslipidemia, goal LDL below 100 (04/22/2003) Morbid obesity, BMI not known ([facility]) (12/09/2002) Cervicalgia Carpal tunnel syndrome Esophageal reflux [...] are significant for: preop labs obtained at [facility], not available for review. CBC and CMP [...] Notes * Dariela Radford LPN - 04/04/2024 1:08 PM EDT Today's Pre-op clearance notes faxed to Dr Bernard. Confirmation received. * Dariela Radford LPN - 04/04/2024 12:12 PM EDT Chief Complaint Patient presents with pre-op exam Pt is scheduled for back surgery at [facility] 04/[address] Bernard. States he had labs done at [place] yesterday. documented in this encounter Plan of Treatment Upcoming Encounters Date Type Department Care Team (Late st Contact Info) Description 05/14/2024 8:00 AM EDT Laboratory Laboratory, [address] [phone] [facility] [address] [facility] [address] 05/28/2024 8:00 AM EDT Office [address], [address] [address] [facility] [address] 06/04/2024 9:00 AM EDT Telemedicine Hematology/Oncology, [address] [place] [address] Lion Hernández MD [address] [facility] [phone] 06/13/2024 2:40 PM EDT [address] [phone] Robert Szymanski MD [facility] [place] [address] 09/08/2024 7:45 AM EST Office Visit Ophthalmology, [facility] [address] [place] [address] Angel Gan, DO [address] [place] [address] 01/14/2025 12:50 PM EDT Office Visit Dermatology, [address] [place] [address] Abril Garrett PA-C [address] [place] [address] Scheduled Procedures Name Priority Associated Diagnoses Date/Ti [...] this encounter Medical Devices Implanted Type Area Design Engineer Marine Equipment Device Identifier Shelf Expiration Date Model / Serial / Lot Mesh 3x6 Implanted:Qty: 1 on 03/01/2015 by Bruno Cifuentes MD at OR [facility] Left: Groin INACTIVE [employer] / [id number] / [id number] documented as of this encounter Visit Diagnoses [...] Documents on File Type Date Recorded Patient Charge Poster Expl anation Advance Directives and Living Will [...] Discussed due to patient's condition Care Teams Environmental Health Manager Relationship Specialty Start Date End Date Robert Szymanski MD [address] [place] [phone] PCP - General Family Medicine 06/18/23 documented as of this encounter
[2024-04-11] MEDS: CeleBREX 200 MG CAP PO SCH (09:41)
[2024-04-11] MEDS: LR 15ML/HR IV SCH (09:41)
[2024-04-11] MEDS: GABAPENTIN 600 MG DOSE PO SCH (09:41)
[2024-04-11] MEDS: LR 60ML/HR IV SCH (09:41)
[2024-04-11] MEDS ORDERED: MIDAZOLAM HCL 1 MG/ML 2ML VIAL ONE (09:50)
[2024-04-11] MEDS ORDERED: fentaNYL citrate PF 100 MCG/2 ML VIAL ONE ×2 (09:51→12:02)
--- NOTE | 2024-04-11 09:53 | History & Physical Bridge Note ---
Date of Service April 11, 2024 History & Physical Bridge Note I have examined the patient, reviewed the History & Physical and in the interval since the performance of the History & Physical I have noted the following changes of clinical significance: no changes noted
--- NOTE | 2024-04-11 09:54 | History & Physical Report ---
Date of Service April 11, 2024 Assessment & Plan (1) Neurogenic claudication due to lumbar spinal stenosis: Plan: L5-S1 decompression and fusion possible L4-L5 History of Present Illness Chief Complaint: Back and bilateral leg pain Primary Care Provider: Robert Szymanski MD This is a 63-year-old male presents with chronic persistent back and leg pain and failing since course of nonoperative care is here for surgical invention. Allergies Allergy/AdvReac Type Severity Reaction Status Date / Time alprazolam [From Xanax] AdvReac mood Verified 04/11/24 08:58 changes, angry, irritated Home Medications Medication Instructions Recorded Confirmed Type acetaminophen 500 mg capsule 1,000 mg PO Q6H PRN Pain 04/01/24 04/11/24 History amlodipine 2.5 mg tablet (Norvasc) 2.5 mg PO HS 04/01/24 04/11/24 History ascorbic acid (vitamin C) 1,000 mg 1 g PO QAM 04/01/24 04/11/24 History tablet (Vitamin C) aspirin 81 mg tablet,delayed 81 mg PO QAM 04/01/24 04/11/24 History release cetirizine 10 mg tablet (Zyrtec) 10 mg PO QAM 04/01/24 04/11/24 History cholecalciferol (vitamin D3) 25 25 mcg PO QAM 04/01/24 04/11/24 History mcg (1,000 unit) tablet (Vitamin D3) cyclobenzaprine 10 mg tablet 10 mg PO TID 04/01/24 04/11/24 History diclofenac sodium 1 % topical gel 2 g topical QID PRN Pain 04/01/24 04/11/24 History diclofenac sodium 75 mg 75 mg PO BID 04/01/24 04/11/24 History tablet,delayed release escitalopram oxalate 10 mg tablet 10 mg PO QAM 04/01/24 04/11/24 History (Lexapro) famotidine 40 mg tablet (Pepcid) 40 mg PO HS 04/01/24 04/11/24 History lidocaine 5 % topical patch 1 patch topical DAILY PRN Pain 04/01/24 04/11/24 History lisinopril 20 1 tab PO QAM 04/01/24 04/11/24 History mg-hydrochlorothiazide 25 mg tablet metronidazole 0.75 % topical gel 1 applic topical DAILY PRN rosacea 04/01/24 04/11/24 History pregabalin 50 mg capsule (Lyrica) 50 mg PO BID 04/01/24 04/11/24 History simvastatin 10 mg tablet 10 mg PO HS 04/01/24 04/11/24 History Past Med/Surg History Problem List (Updated 04/11/24 @ 09:54 by Bruno Bernard DO) Neurogenic claudication due to lumbar spinal stenosis Encounter for pre-operative examination Lumbosacral radiculopathy Medical History Anxiety and depression Difficult intravenous access Environmental and seasonal allergies GERD (gastroesophageal reflux disease) controlled, stable per pt Hyperlipidemia Hypertension controlled, stable per pt Lumbosacral radiculopathy Prediabetes diet controlled Pulmonary embolism 08/2023, 2/2 immobility for extended time, was on eliquis until 02/22/23 and then it specialist told him he would need to go back on the eliquis following his upcoming back surgery; f/u [facility] Rosacea Sleep apnea CPAP, set at 9 Surgical History History of colonoscopy Hx of left inguinal hernia repair Hx of right inguinal hernia repair Hx of vasectomy Status post myringotomy with tube placement of both ears Social History Smoking Status: Never smoker Second Hand Exposure: Yes; Do You Dip or Chew Tobacco: Yes (2-3 cans/week; advised); Tobacco Cessation Education Requested by Patient: No Hx Alcohol Use: Yes Alcohol type: beer Hx Substance Use: No Preferred Language: Khmer Communication Ability: Effective Panel Wirer Required: No Beliefs That Will Affect Care: None Current Living Situation: Spouse Other Information That Helps Us Care for You: No Feels Safe at Home: Yes Safety Concerns: Feels Safe At This Time Assistive Devices: CPAP and Glasses Physical Exam Physical Exam: Patient is alert and oriented Heart regular rhythm Lungs clear Results & Data Results & Data Vital Signs (Past 12 Hours) Vital Signs Temp Pulse Resp BP Pulse Ox O2 Del Method 04/11/24 09:16 36.8 C 73 20 144/98 H 98 Room Air
[2024-04-11] MEDS ORDERED: ePHEDrine sulfate 50 MG/ML AMP IV PRN (10:29)
[2024-04-11] MEDS ORDERED: ONDANSETRON INJ 2 MG/ML 2 ML VIAL IV PRN ×2 (10:29→14:26)
[2024-04-11] MEDS ORDERED: ATROPINE SULFATE 0.1 MG/ML 10ML SYR IV PRN (10:29)
[2024-04-11] MEDS: ceFAZolin 3000MG 3,000 MG/72.5 ML BAG IV SCH (10:32)
[2024-04-11] MEDS ORDERED: KETAMINE HCL 10MG/ML SYR ONE (10:57)
[2024-04-11] MEDS ORDERED: PROPOFOL IV EMULSION 10 MG/ML 20 ML VIAL IV ONE ×2 (11:05→12:04)
[2024-04-11] MEDS ORDERED: ROCURONIUM BROMIDE 10 MG/ML 5 ML VIAL IV ONE (11:05)
[2024-04-11] MEDS ORDERED: LIDOCAINE 2% 2 ML VIAL/AMP(20MG/ML) INFIL ONE (11:05)
[2024-04-11] MEDS ORDERED: DEXAMETHASONE SOD INJ 4 MG/ML VIAL ONE (11:05)
[2024-04-11] MEDS ORDERED: ONDANSETRON INJ 2 MG/ML 2 ML VIAL ONE (11:05)
[2024-04-11] MEDS ORDERED: SUGAMMADEX SODIUM 200 MG/2 ML VIAL IV ONE (11:06)
[2024-04-11] MEDS: BUPIVACAINE/EPINEPHRINE 0.25% 1:200,000 30 ML VIAL ONE (11:13)
[2024-04-11] MEDS ORDERED: ePHEDrine sulfate 50 MG/5 ML SYR ONE (11:26)
[2024-04-11] MEDS ORDERED: PHENYLEPHRINE 100MCG/ML 10ML SYR IV ONE (11:54)
[2024-04-11] MEDS: ceFAZolin 330 MG/ML 1 GM VIAL ONE (12:17)
--- NOTE | 2024-04-11 12:21 | Operative Report ---
Post Operative Report Pre & Post Diagnosis Operation Date: 04/11/24 10:05 Pre-Op Diagnosis: Lumbar Region Spondylolisthesis Lumbar radiculopathy Morbid obesity Post-Op Diagnosis: Same I identified the patient and participated in the time-out.: Yes Procedure Operation Date: 04/11/24 10:05 Actual Procedures #1 lumbar decompression with bilateral medial facetectomies and foraminotomies L4-L5 L5-S1. #2 posterior spinal fusion L5-S1. #3 placed posterior instrumentation L5-S1. #4 interbody fusion L5-S1. #5 placement of Spira 16 x 26 mm cages x 2 at L5-S1. #6 placement locally harvested morselized autograft and posterior gutters. #7 placement infuse collagen sponge, with Koros bone graft in the posterior lateral gutters and Morpheus interbody space. Surgeon Bruno Bernard, DO Infection Control Nurse Phoenix Mcintyre Estimated Blood Loss 400 Findings See Below The patient is 5 foot 10 weighing over 141 kg with a BMI in excess of 44. The patient's body habitus did contribute to significant technical difficulty with positioning exposure and the procedure itself. This at least 50% increased operative time. This would be a modifier 22. Specimens None Indications This is a 63-year-old male well-known to me the presents problems diagnosis of failed course of nonoperative care is here for surgical invention. Description of Procedure Patient was met with identified informed consent obtained. Patient was then taken to the operative suite underwent patient placed in a prone position on the Lee table on top of the Miguel frame. All bony promises well-padded eyes inspected to ensure no external pressure placed upon them. This point the lumbar spine was prepped and draped in normal sterile fashion. Sharp dissection with assistance of Bovie cautery was performed down to and exposing the lamina transverse processes of L5 and the sacral ala bilaterally. Obvious bilateral pars defect noted a complete laminectomy of L5 was then performed including bilateral medial facetectomies and foraminotomies addressing severe spinal stenosis. I then performed a partial laminectomy of L4 including bilateral medial facetectomies to address subarticular neural compression. Pedicle screws were then placed in L5 and S1 levels bilaterally with assistance of fluoroscopy and proper size aubrey placed. By way of transforaminal approach on the right discectomy of L5-S1 was performed endplates corrected to subcortical bleeding bone and a 16 x 26 mm spiral cage filled with Morpheus bone graft tapped in position. Then proceeded the left transforaminal region. A discectomy again performed endplates guided to subcortical bleeding bone and a second 16 x 26 mm spiral cage filled Morpheus bone graft tapped in position. The rods then compressed locked in final position bilaterally. The transverse processes of L5 and the sacral ala burred to subcortical bleeding bone. Infuse collagen sponge, with Koros and local autograft placed in the posterior lateral gutters. 15 round DON drain inserted. The incision was then closed with 1 Vicryl in the fascia 2-0 Vicryl subcutaneously and 4 Monocryl for final skin closure. Steri- Strips sterile dressing placed. Patient awakened taken to PACU in stable condition. Please note spinal cord monitoring was utilized at the procedure no changes noted. Phoenix Mcintyre was present at the entire surgery and while the patient positioning complex portions of the surgery and fashion closure. Im ordering 20 grams of Triple [place] Collagen Powder ([id number]) to treat an incision wound that was caused by a spine procedure. The incision is approximately 2 cm(W) x 4 cm(L) into the joint (D) in size and is a full thickness wound. Triple [place] collagen comes in 1 gram packets so 20 packets were ordered. Given the size of the wound, with light to moderate exudate I chose to order a 20 day supply. The patient will be provided instructions for proper application of the collagen wound kit. The patient will be asked to apply the collagen powder daily and then cover it with sterile dressings dispensed. Collagen was selected as I expect the collagen to attract monocytes and fibroblasts, act as a sacrificial substrate for MMPs, and ultimately proved a matrix for tissue and vessel growth. The collagen will act as a primary dressing in this scenario. It is medically necessary for proper healing of these wounds to improve bioavailability and contact with each wound surface, this is also to help prevent infection of wounds and promote healing ultimately leading to a better healing outcome and limit the risk of infection. I attest to the content of the Intraoperative Record and any orders documented therein. Any exceptions are noted below.
--- NOTE | 2024-04-11 12:29 | Fluoroscopy Report ---
FL lumbar spine 2-3V CLINICAL HISTORY: L5-S1 DECOMP/FUSION COMPARISON STUDY: None FLUOROSCOPY TIME: 21 seconds FLUOROSCOPY IMAGES: 2 EXPOSURE DOSE: 18.33 mGy FINDINGS: Posterior interbody aubrey and screw fusion with discectomy and laminectomy at L5-S1. Hardware appears intact. IMPRESSION: Fluoroscopic assistance as above. ACT 112: Negative or not required by law. Electronically signed by: Cuco Hoffman M.D. 04/11/2024 12:28 PM
[2024-04-11] MEDS: HYDROmorphone INJ 1 MG/ML SYRINGE IV PRN (12:55)
--- NOTE | 2024-04-11 14:04 | Anesthesiology Progress Note ---
Date of Service April 11, 2024 Anesthesia Post Procedure Vital Signs Vital Signs: Temp Pulse Pulse Resp BP Pulse Ox O2 Del Method 04/11/24 13:45 36.4 C L 67 14 125/76 96 Nasal Cannula 04/11/24 13:35 70 12 125/72 95 Nasal Cannula 04/11/24 13:25 73 12 120/75 95 Nasal Cannula 04/11/24 13:15 71 12 124/75 95 Nasal Cannula 04/11/24 13:05 75 12 109/56 L 96 Oxymask 04/11/24 12:55 76 12 122/79 98 Oxymask 04/11/24 12:45 36.5 C 89 14 133/80 97 Oxymask 04/11/24 09:16 36.8 C 73 20 144/98 H 98 Room Air O2 Flow Rate 04/11/24 13:45 2 04/11/24 13:35 2 04/11/24 13:25 2 04/11/24 13:15 2 04/11/24 13:05 3 04/11/24 12:55 6 04/11/24 12:45 04/11/24 09:16 Pain Intensity Bilateral Hip: Pain Intensity: 6 Medial Back: Pain Intensity: 4 Transfer of Care Handoff Completed per policy Notes Mental Status: alert / awake / arousable and participated in evaluation Patient Amnestic to Procedure: Yes Nausea / Vomiting: adequately controlled Pain: adequately controlled Airway Patency, RR, SpO2: stable & adequate BP & HR: stable & adequate Hydration State: stable & adequate Anesthetic Complications: no major complications apparent and Pt Satisfied with anesthetic care
[2024-04-11] MEDS ORDERED: FAMOTIDINE 20 MG TAB PO PRN (14:26)
[2024-04-11] MEDS ORDERED: ONDANSETRON 4 MG OD TAB PO PRN (14:26)
[2024-04-11] MEDS ORDERED: METOCLOPRAMIDE HCL INJ 5 MG/ML 2 ML VIAL IV PRN (14:26)
[2024-04-11] MEDS ORDERED: SOD PHOSPHATE/SOD BIPHOSPHATE ENEMA 132 ML BTL PR PRN (14:26)
[2024-04-11] MEDS ORDERED: HYDROmorphone INJ 1 MG/ML SYRINGE IV PRN (14:26)
[2024-04-11] MEDS ORDERED: DO NOT ADMINISTER FLU VACCINE PRN (14:26)
[2024-04-11] MEDS ORDERED: diphenhydrAMINE Capsule 25 MG CAP PO PRN (14:26)
[2024-04-11] MEDS ORDERED: LORazepam 0.5 MG TAB PO PRN (14:26)
[2024-04-11] MEDS ORDERED: MAGNESIUM HYDROXIDE SUSP 30 ML UDC PO PRN (14:26)
[2024-04-11] MEDS ORDERED: PROMETHAZINE HCL 12.5 MG in SODIUM CHLORIDE 0.9% 50 ML IV PRN (14:26)
[2024-04-11] MEDS ORDERED: bisacodyL 10 MG SUPP PR PRN (14:26)
[2024-04-11] MEDS ORDERED: LORazepam 0.5 MG in SYRINGE 0.25 ML IV PRN (14:26)
[2024-04-11] MEDS ORDERED: NALOXONE HCL 0.4 MG/1 ML VIAL/CARP IV PRN (14:26)
[2024-04-11] MEDS ORDERED: ACETAMINOPHEN 1,000 MG/100 ML VIAL IV PRN (14:26)
[2024-04-11] MEDS ORDERED: HYDROmorphone INJ 0.5 MG/0.5 ML SYR IV PRN (14:26)
[2024-04-11] MEDS ORDERED: DO NOT ADMINISTER PNEUMOCOCCAL VACCINE PRN (14:26)
[2024-04-11] MEDS ORDERED: hydrOXYzine HCl 25 MG TAB PO PRN (14:26)
[2024-04-11] MEDS ORDERED: oxyCODONE HCL IR 5 MG TAB (IMMEDIATE RELEASE) PO PRN (14:26)
[2024-04-11] MEDS ORDERED: ALUMINUM/MAGNESIUM SUSP 30 ML UDC PO PRN (14:26)
[2024-04-11] MEDS: LACTATED RINGER'S 1,000 ML IV SCH (14:41)
--- NOTE | 2024-04-11 15:27 | Hospitalist Consultation ---
Date of Consultation April 11, 2024 Assessment & Plan (1) Neurogenic claudication due to lumbar spinal stenosis: (2) S/P lumbar spine operation: (3) Hypertension: (4) Hyperlipidemia: (5) GERD (gastroesophageal reflux disease): (6) Sleep apnea: Plan Robert Humphreys is a 63y/o M with PMHx of dyslipidemia, prediabetes, MARGIE on CPAP, HTN, morbid obesity, GERD, tobacco use disorder and other problems listed below who was referred to our [facility] for post-operative medical management after undergoing L5-S1 decompression and fusion with Dr. Bernard for treatment of neurogenic claudication due to lumbar spinal stenosis. Neurogenic Claudication 2/2 Lumbar Spinal Stenosis S/P Lumbar Spine Operation POD#0 s/p L5-S1 decompression and fusion with Dr. Bernard. EBL: 400mL & Pre-Op Hgb: 14.9 [04/03/24] Per ortho for pain control, wound care, DVT prophylaxis and activities and disposition. Continue incentive spirometry, PT/OT when appropriate as per ortho team. Monitor H/H for acute blood loss anemia and transfuse blood products PRN. HTN- BP low normal. Will hold home amlodipine and lisinopril/HCTZ for now. Can likely resume tomorrow based on labs and BP. Dyslipidemia- continue statin MARGIE on CPAP- Can continue CPAP HS, ordered. GERD- On famotidine LEATHER ROLLER, can continue. H/o DVT PE related to immobilization- recently completed 6 months of anticoagulation therapy in February. DVT Prophylaxis: SCDs/TEDs - As per primary orthopedic team. Code Status: FULL CODE PCP: Robert Szymanski MD Disposition: per primary orthopedic team. Thank you for this consultation. We will follow the patient with you during their hospital stay. You can reach a member of the [facility] 02/04 via [employer]. Patient seen in collaboration with Dr. Parra. Please see addendum. I spent a total of 60 minutes coordinating, documenting, and providing care for this patient excluding time spent in the performance of separately billed services. This included personally reviewing all current laboratories and imaging studies, medical reconciliation, outpatient chart review and discussion with specialists. This chart was completed in part utilizing Speech Voice Recognition Software. Grammatical errors, random word insertions, pronoun errors, and incomplete sentences are an occasional consequence of this system due to software limitations, ambient noise, and hardware issues. Any formal questions or concerns about the content, text, or information contained within the body of this dictation should be directly addressed to the provider for clarification. Supervising Physician Co-Signing Physician Notes Patient was seen and examined independently at bedside. Chart reviewed. Case discussed with Roseann URIBE and agree with the documentation above and I have made appropriate changes wherever necessary. Rest as per the note above. History of Present Illness Reason for Consultation: Post-Operative Medical Management Requesting Physician: Bruno Bernard DO Attending Physician: Bruno Bernard DO History of Present Illness Robert Humphreys is a 63y/o M with PMHx of dyslipidemia, prediabetes, MARGIE on CPAP, HTN, morbid obesity, GERD, tobacco use disorder and other problems listed below who was referred to our [facility] for post-operative medical management after undergoing L5-S1 decompression and fusion with Dr. Bernard for treatment of neurogenic claudication due to lumbar spinal stenosis. History obtained from patient and associated chart review and patient at bedside. He feels good after the surgery. States his leg symptoms have resolved. Denies any pain currently. Tolerating clears without issues. No N/V, CP, SOB. Voiding without issues. Chews tobacco. Social drinker. Allergies Allergy/AdvReac Type Severity Reaction Status Date / Time alprazolam [From Xanax] AdvReac mood Verified 04/11/24 08:58 changes, angry, irritated Home Medications Medication Instructions Recorded Confirmed Type acetaminophen 500 mg capsule 1,000 mg PO Q6H PRN Pain 04/01/24 04/11/24 History amlodipine 2.5 mg tablet (Norvasc) 2.5 mg PO HS 04/01/24 04/11/24 History ascorbic acid (vitamin C) 1,000 mg 1 g PO QAM 04/01/24 04/11/24 History tablet (Vitamin C) aspirin 81 mg tablet,delayed 81 mg PO QAM 04/01/24 04/11/24 History release cetirizine 10 mg tablet (Zyrtec) 10 mg PO QAM 04/01/24 04/11/24 History cholecalciferol (vitamin D3) 25 25 mcg PO QAM 04/01/24 04/11/24 History mcg (1,000 unit) tablet (Vitamin D3) cyclobenzaprine 10 mg tablet 10 mg PO TID 04/01/24 04/11/24 History diclofenac sodium 1 % topical gel 2 g topical QID PRN Pain 04/01/24 04/11/24 History diclofenac sodium 75 mg 75 mg PO BID 04/01/24 04/11/24 History tablet,delayed release escitalopram oxalate 10 mg tablet 10 mg PO QAM 04/01/24 04/11/24 History (Lexapro) famotidine 40 mg tablet (Pepcid) 40 mg PO HS 04/01/24 04/11/24 History lidocaine 5 % topical patch 1 patch topical DAILY PRN Pain 04/01/24 04/11/24 History lisinopril 20 1 tab PO QAM 04/01/24 04/11/24 History mg-hydrochlorothiazide 25 mg tablet metronidazole 0.75 % topical gel 1 applic topical DAILY PRN rosacea 04/01/24 04/11/24 History pregabalin 50 mg capsule (Lyrica) 50 mg PO BID 04/01/24 04/11/24 History simvastatin 10 mg tablet 10 mg PO HS 04/01/24 04/11/24 History Patient History Medical History Difficult intravenous access Pulmonary embolism 08/2023, 2/2 immobility for extended time, was on eliquis until 02/22/23 and then team manager told him he would need to go back on the eliquis following his upcoming back surgery; [facility]/u [facility] Lumbosacral radiculopathy Rosacea Prediabetes diet controlled Sleep apnea CPAP, set at 9 Anxiety and depression GERD (gastroesophageal reflux disease) controlled, stable per pt Environmental and seasonal allergies Hyperlipidemia Hypertension controlled, stable per pt Surgical History History of colonoscopy Hx of vasectomy Hx of right inguinal hernia repair Hx of left inguinal hernia repair Status post myringotomy with tube placement of both ears Social History Smoking Status: Never smoker Second Hand Exposure: Yes; Do You Dip or Chew Tobacco: Yes (2-3 cans/week; advised); Tobacco Cessation Education Requested by Patient: No Hx Alcohol Use: Yes Alcohol type: beer Hx Substance Use: No Preferred Language: Slovenian Communication Ability: Effective Chip Mucker Required: No Beliefs That Will Affect Care: None Current Living Situation: Spouse Other Information That Helps Us Care for You: No Feels Safe at Home: Yes Safety Concerns: Feels Safe At This Time Assistive Devices: CPAP and Glasses Review of Systems Review of Systems: At least ten systems reviewed and negative, except as noted in the HPI. Physical Exam Physical Exam: General: Sitting comfortably in bed, not in distress, on room air HEENT: EOMI, MIRANDA, MMM Chest: Clear breath sounds bilaterally, no wheezes or crackles CVS: Regular rate and rhythm, normal heart sounds, no murmur Abdomen: Soft, non tender, not distended, normal bowel sounds Neuro: Awake, alert, oriented, conversing well, non focal Extremities: No cyanosis, clubbing or edema Back: Surgical incision site covered with dressing, DON drain with sanguineous output Results & Data Results & Data Vital Signs (Past 12 Hours) Vital Signs Temp Pulse Pulse Resp BP Pulse Ox O2 Del Method 04/11/24 15:10 36.4 C L 75 18 121/76 92 Room Air 04/11/24 14:40 36.4 C L 76 16 117/78 92 Room Air 04/11/24 13:45 36.4 C L 67 14 125/76 96 Nasal Cannula 04/11/24 13:35 70 12 125/72 95 Nasal Cannula 04/11/24 13:25 73 12 120/75 95 Nasal Cannula 04/11/24 13:15 71 12 124/75 95 Nasal Cannula 04/11/24 13:05 75 12 109/56 L 96 Oxymask 04/11/24 12:55 76 12 122/79 98 Oxymask 04/11/24 12:45 36.5 C 89 14 133/80 97 Oxymask 04/11/24 09:16 36.8 C 73 20 144/98 H 98 Room Air O2 Flow Rate 04/11/24 15:10 04/11/24 14:40 04/11/24 13:45 2 04/11/24 13:35 2 04/11/24 13:25 2 04/11/24 13:15 2 04/11/24 13:05 3 04/11/24 12:55 6 04/11/24 12:45 04/11/24 09:16 Diagnostic Findings Lumbar Spine X-Ray 04/11/24 07:00 FL lumbar spine 2-3V CLINICAL HISTORY: L5-S1 DECOMP/FUSION COMPARISON STUDY: None FLUOROSCOPY TIME: 21 seconds FLUOROSCOPY IMAGES: 2 EXPOSURE DOSE: 18.33 mGy FINDINGS: Posterior interbody aubrey and screw fusion with discectomy and laminectomy at L5-S1. Hardware appears intact. IMPRESSION: Fluoroscopic assistance as above. ACT 112: Negative or not required by law. Electronically signed by: Cuco Hoffman M.D. 04/11/2024 12:28 PM Medications Administered Celecoxib (Celebrex 200 Mg Cap) 200 mg PO PREOP JADEN Stop: 04/11/24 18:00 Last Admin: 04/11/24 09:41 Dose: 200 mg Documented By: AD Gabapentin (Gabapentin 600 Mg Dose) 600 mg PO PREOP JADEN Stop: 04/11/24 18:00 Last Admin: 04/11/24 09:41 Dose: 600 mg Documented By: AD Hydromorphone HCl (Hydromorphone Inj 1 Mg/Ml Syringe) 0.25 mg IV Q5M PRN PRN Reason: PACU Use Only-Pain Stop: 04/11/24 18:30 Last Admin: 04/11/24 13:00 Dose: 0.25 mg Documented By: Admin: 04/11/24 12:55 Dose: 0.25 mg Documented By: NUZHAT Lactated Ringer's (Lr) 1,000 mls @ 15 mls/hr IV .Q24H JADEN Stop: 04/12/24 05:59 Last Infusion: 04/11/24 10:30 Dose: Infused Documented By: Admin: 04/11/24 09:41 Dose: 15 mls/hr Documented By: AD Lactated Ringer's (Lr) 1,000 mls @ 60 mls/hr IV .[id number] JADEN Stop: 04/11/24 22:39 Last Admin: 04/11/24 09:41 Dose: Not Given Documented By: AD Cefazolin Sodium (Ancef 3000mg) 3,000 mg in 72.5 mls @ 130 mls/hr IV PREOP JADEN; Protocol Stop: 04/11/24 18:00 Last Infusion: 04/11/24 14:30 Dose: Infused Documented By: Admin: 04/11/24 10:32 Dose: 130 mls/hr Documented By: [id number] Lactated Ringer's (Lr) 1,000 mls @ 150 mls/hr IV .[id number] [facility] Stop: 05/11/24 14:25 Last Admin: 04/11/24 14:41 Dose: 150 mls/hr Documented By: CEF Discontinued Medications Bupivacaine HCl/Epinephrine Bitart (Bupivacaine/Epinephrine 0.25% 1:200,000 30 Ml Vial) Confirm Administered Dose 30 ml .ROUTE .STK-MED ONE Stop: 04/11/24 10:17 Last Admin: 04/11/24 11:13 Dose: 25 ml Documented By: VANESSA Cefazolin Sodium (Cefazolin 330 Mg/Ml 1 Gm Vial) Confirm Administered Dose 990 mg .ROUTE .STK-MED ONE Stop: 04/11/24 10:17 Last Admin: 04/11/24 12:17 Dose: 990 mg Documented By: VANESSA
[2024-04-11] MEDS: ceFAZolin 2000MG 2,000 MG/15 ML SYR IV SCH (18:04)
[2024-04-11] MEDS: PREGABALIN 50 MG CAP PO SCH (20:58)
[2024-04-11] MEDS: traMADol HCL 50 MG TABLET PO PRN (20:58)
[2024-04-11] MEDS: DICLOFENAC SODIUM 75 MG TABCR PO SCH (20:59)
[2024-04-11] MEDS: DOCUSATE SODIUM/SENNA 50/8.6MG TAB PO SCH (20:59)
[2024-04-11] MEDS: FAMOTIDINE 40 MG TABLET PO SCH (20:59)
[2024-04-11] MEDS: SIMVASTATIN 10 MG TAB PO SCH (20:59)
[2024-04-12] MEDS: POLYETHYLENE (MIRALAX) 17 GM PACK PO SCH (05:13)
[2024-04-12 07:09] LABS: Basophils # (auto) 0.02 K/uL (0.00-0.20); Basophils % (auto) 0.2 %; Hemoglobin 12.2 g/dl (14.0-18.0); Immature Granulocytes # (auto) 0.08 K/uL (0.01-0.20); Immature Granulocytes % (auto) 0.6 %; Lymphocytes # (auto) 1.19 K/uL (1.20-3.40); Lymphocytes % (auto) 9.2 %; Mean Corpuscular Hemoglobin 29.8 pg (25.0-34.0); Mean Corpuscular Volume 90.5 fL (80.0-100.0); Mean Platelet Volume 10.3 fL (9.4-12.4); Monocytes # (auto) 1.06 K/uL (0.11-0.59); Monocytes % (auto) 8.2 %; Neutrophils # (auto) 10.54 K/uL (1.40-6.50); Neutrophils % (auto) 81.8 %; Platelet Count 209 K/uL (130-400); RDW Coefficient of Variation 13.8 % (11.5-14.5); Red Blood Count 4.09 M/uL (4.70-6.10); White Blood Count 12.89 K/ul (4.8-10.8)
[2024-04-12 07:29] LABS: BUN Creatinine Ratio 17.1 (10-20); Calcium 8.8 mg/dl (8.6-10.3); Creatinine Clr Calc Pharmacy 143.3 ml/min; Est GFR (African American) 113.3 ml/min; Est GFR (Non-African American) 97.8 ml/min; Magnesium 1.9 mg/dl (1.7-2.4); Phosphorus 4.1 mg/dl (2.5-4.9); Potassium 4.3 mmol/L (3.5-5.1)
[2024-04-12] MEDS: dexAMETHasone 6 MG in SYRINGE 0 ML IV SCH (08:20)
[2024-04-12] MEDS: CETIRIZINE HCL 10 MG TABLET PO SCH (08:21)
[2024-04-12] MEDS: ASPIRIN 81 MG ECTAB PO SCH (08:21)
[2024-04-12] MEDS: ESCITALOPRAM OXALATE 10 MG TAB PO SCH (08:21)
[2024-04-12] MEDS: ASCORBIC ACID 500 MG TAB PO SCH (08:21)
[2024-04-12] MEDS: CHOLECALCIFEROL 25 MCG (1000 UNITS) TAB PO SCH (08:21)
--- NOTE | 2024-04-12 10:51 | Orthopedic Progress Note ---
Date of Service April 12, 2024 Assessment & Plan (1) Neurogenic claudication due to lumbar spinal stenosis: Plan: This time we will continue physical therapy monitor his DON operatively discharged home the next few days. Admission and Anticipated Discharge Date Admission Date: April 11, 2024 Subjective Back pain controlled leg symptoms improved Physical Exam Physical Exam: Patient is currently in the chair at the bedside. He stands and ambulates without difficulty. Good strength testing lower extremities. Results & Data Vital Signs (Past 12 Hours) Vital Signs Temp Pulse Pulse Resp BP Pulse Ox O2 Del Method 04/12/24 07:23 36.8 C 73 18 146/87 H 95 Room Air 04/12/24 04:07 36.8 C 66 16 106/64 96 Room Air 04/12/24 00:55 36.8 C 77 16 104/69 96 Room Air Queries Orthopedic Spine Obesity: Yes
--- NOTE | 2024-04-12 11:30 | Hospitalist Progress Note ---
Date of Service April 12, 2024 Assessment & Plan (1) Neurogenic claudication due to lumbar spinal stenosis: (2) S/P lumbar spine operation: (3) Hypertension: (4) Hyperlipidemia: (5) GERD (gastroesophageal reflux disease): (6) Sleep apnea: Plan Robert Humphreys is a 63y/o M with PMHx of dyslipidemia, prediabetes, MARGIE on CPAP, HTN, morbid obesity, GERD, tobacco use disorder and other problems listed below who was referred to our [place] [facility] Team for post-operative medical management after undergoing L5-S1 decompression and fusion with Dr. Bernard for treatment of neurogenic claudication due to lumbar spinal stenosis. #Neurogenic Claudication 2/2 Lumbar Spinal Stenosis #S/P Lumbar Spine Operation POD#1s/p L5-S1 decompression and fusion with Dr. Bernard. Per ortho for pain control, wound care, DVT prophylaxis and activities and disposition. Continue incentive spirometry, PT/OT when appropriate as per ortho team. #Acute blood loss anemia, 2/2 post op losses EBL: 400mL & Pre-Op Hgb: 14.9 [04/03/24],downt o 12.2 Monitor H/H for acute blood loss anemia and transfuse blood products PRN. #HTN-resume home amlodipine and lisinopril/hctz #Dyslipidemia- continue statin #MARGIE on CPAP- Can continue CPAP HS, ordered. #GERD- On famotidine [employer]ISTANT MERCHANDIS[employer], can continue. 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 DVT Prophylaxis: SCDs/TEDs - As per primary orthopedic team. Code Status: FULL CODE PCP: Robert Szymanski MD Disposition: per primary orthopedic team. Thank you for this consultation. We will follow the patient with you during [facility] hospital stay. You can reach a member of the [place] [facility]ist Team 02/04 via [employer]. I spent a total of 45 minutes coordinating, documenting, and providing care for this patient excluding time spent in the performance of separately billed services. This included personally reviewing all current laboratories and imaging studies, medical reconciliation, outpatient chart review and discussion with specialists. Admission and Anticipated Discharge Date Admission Date: April 11, 2024 Subjective NAEO Reports that pain in legs has resolved and endorses pain c/w postoperative symptoms Patient notes that sensation is returning to ble, where it was numb for sometime given ongoing radiculopathic symptoms He denies any chest pain or SOB afebrile Physical Exam Constitutional: WD/WN, vitals as above Respiratory: normal respiratory effort, lungs clear to auscultation Cardiovascular: RRR, no murmur, no edema Musculoskeletal: back with dressing in place, serosanguineous strike through Neurologic: PERRL, EOMI, accommodation nl, no face palsy, no dysarthria Results & Data Results & Data Vital Signs (Past 12 Hours) Vital Signs Temp Pulse Pulse Resp BP Pulse Ox O2 Del Method 04/12/24 07:23 36.8 C 73 18 146/87 H 95 Room Air 04/12/24 04:07 36.8 C 66 16 106/64 96 Room Air 04/12/24 00:55 36.8 C 77 16 104/69 96 Room Air Laboratory Results Short CBC 04/12/24 Range/Units 06:47 WBC 12.89 H (4.8-10.8) K/ul Hgb 12.2 L (14.0-18.0) g/dl Hct 37.0 L (42.0-52.0) % Plt Count 209 (130-400) K/uL BMP 04/12/24 06:47 Sodium 137 Potassium 4.3 Chloride 104 Carbon Dioxide 27 BUN 13 Creatinine 0.76 Glucose 122 H Calcium 8.8 Medications Administered Home Medications Medication Instructions Recorded Confirmed Last Taken acetaminophen 500 mg capsule 1,000 mg PO Q6H PRN Pain 04/01/24 04/11/24 04/11/24 06:30 amlodipine 2.5 mg tablet (Norvasc) 2.5 mg PO HS 04/01/24 04/11/24 04/10/24 20:00 ascorbic acid (vitamin C) 1,000 mg 1 g PO QAM 04/01/24 04/11/24 04/03/24 tablet (Vitamin C) aspirin 81 mg tablet,delayed 81 mg PO QAM 04/01/24 04/11/24 04/10/24 08:00 release cetirizine 10 mg tablet (Zyrtec) 10 mg PO QAM 04/01/24 04/11/24 04/10/24 20:00 cholecalciferol (vitamin D3) 25 25 mcg PO QAM 04/01/24 04/11/24 04/10/24 20:00 mcg (1,000 unit) tablet (Vitamin D3) cyclobenzaprine 10 mg tablet 10 mg PO TID 04/01/24 04/11/24 04/11/24 06:30 diclofenac sodium 1 % topical gel 2 g topical QID PRN Pain 04/01/24 04/11/24 04/08/24 diclofenac sodium 75 mg 75 mg PO BID 04/01/24 04/11/24 04/04/24 tablet,delayed release escitalopram oxalate 10 mg tablet 10 mg PO QAM 04/01/24 04/11/24 04/11/24 06:30 (Lexapro) famotidine 40 mg tablet (Pepcid) 40 mg PO HS 04/01/24 04/11/24 04/10/24 20:00 lidocaine 5 % topical patch 1 patch topical DAILY PRN Pain 04/01/24 04/11/24 04/04/24 lisinopril 20 1 tab PO QAM 04/01/24 04/11/24 04/10/24 08:00 mg-hydrochlorothiazide 25 mg tablet metronidazole 0.75 % topical gel 1 applic topical DAILY PRN rosacea 04/01/24 04/11/24 01/15/24 pregabalin 50 mg capsule (Lyrica) 50 mg PO BID 04/01/24 04/11/24 04/11/24 06:30 simvastatin 10 mg tablet 10 mg PO HS 04/01/24 04/11/24 04/10/24 20:00 oxycodone 5 mg tablet 5 mg PO Q6H PRN pain #30 tabs 04/12/24 Unknown tramadol 50 mg tablet 50 mg PO Q6H PRN pain, moderate 04/12/24 Unknown #30 tabs Active Medications Generic Name Dose Route Start Last Admin Trade Name Freq PRN Reason Stop Dose Admin Ascorbic Acid 1,000 mg 04/12/24 09:00 04/12/24 08:21 Ascorbic Acid 500 Mg Tab PO 05/12/24 08:59 1,000 mg QAM [facility] Administration Aspirin 81 mg 04/12/24 09:00 04/12/24 08:21 Aspirin 81 Mg Ectab PO 05/12/24 08:59 81 mg QAM [facility] Administration Cetirizine HCl 10 mg 04/12/24 09:00 04/12/24 08:21 Cetirizine Hcl 10 Mg Tablet PO 05/12/24 08:59 10 mg QAM JADEN Administration Diclofenac Sodium 75 mg 04/11/24 21:00 04/12/24 08:20 Diclofenac Sodium 75 Mg Tabcr PO 05/11/24 20:59 75 mg BID JADEN Administration Escitalopram Oxalate 10 mg 04/12/24 09:00 04/12/24 08:21 Escitalopram Oxalate 10 Mg Tab PO 05/12/24 08:59 10 mg QAM JADEN Administration Famotidine 40 mg 04/11/24 21:00 04/11/24 20:59 Famotidine 40 Mg Tablet PO 05/11/24 20:59 40 mg HS JADEN Administration Dexamethasone 6 mg/ Syringe 1.5 mls @ 1 mls/min 04/12/24 09:00 04/12/24 08:20 IV 04/14/24 09:02 1 mls/min DAILY JADEN Administration Polyethylene Glycol 17 gm 04/12/24 06:00 04/12/24 05:13 Polyethylene (Miralax) 17 Gm Pack PO 05/12/24 05:59 17 gm Q6 JADEN Administration Pregabalin 50 mg 04/11/24 21:00 04/12/24 08:31 Pregabalin 50 Mg Cap PO 05/11/24 20:59 50 mg BID JADEN Administration Senna/Docusate Sodium 2 tab 04/11/24 21:00 04/11/24 20:59 Docusate Sodium/Senna 50/8.6mg Tab PO 05/11/24 20:59 2 tab HS JADEN Administration Simvastatin 10 mg 04/11/24 21:00 04/11/24 20:59 Simvastatin 10 Mg Tab PO 05/11/24 20:59 10 mg HS JADEN Administration Tramadol HCl 50 - 100 mg 04/11/24 14:26 04/12/24 10:17 Tramadol Hcl 50 Mg Tablet PO 05/11/24 14:25 50 mg Q4H PRN Administration Moderate-Severe pain & Pre PT Vitamin D 25 mcg 04/12/24 09:00 04/12/24 08:21 Cholecalciferol 25 Mcg (1000 Units) Tab PO 05/12/24 08:59 25 mcg QAM JADEN Administration
[2024-04-12] MEDS: amLODIPine BESYLATE 5 MG TAB PO SCH (20:38)
[2024-04-12] MEDS: ACETAMINOPHEN 500 MG TAB PO PRN (20:44)
[2024-04-13 06:33] LABS: Hematocrit (blood only) 35.4 % (42.0-52.0); Hemoglobin 11.6 g/dl (14.0-18.0)
--- NOTE | 2024-04-13 08:25 | Orthopedic Progress Note ---
Date of Service April 13, 2024 Assessment & Plan (1) S/P lumbar spine operation: Plan: Robert is postoperative day 2 status post TLIF L5-S1. Will focus on physical therapy and pain control today. Maintain DON drain. DVT prophylaxis is in the form teds and SCDs. Continue with aggressive bowel regimen. Anticipate discharge home tomorrow Admission and Anticipated Discharge Date Admission Date: April 11, 2024 Subjective Robert is postoperative day 2 status post lumbar decompression and fusion of L5- S1. He is up and ambulatory around the hallways and ambulating 40 feet in physical therapy. DON drain output last shift was 5 cc. H&H this morning are 11.6 and 35.4 respectively. He had a bowel movement. Review of Systems Review of Systems: All systems reviewed & are unremarkable except as noted in HPI & below Physical Exam Physical Exam: He is seen in conjunction with his . He sitting in a chair no acute distress Alert and oriented x 3 lumbar dressing is clean dry intact with functioning DON drain strength is intact bilateral lower extremities calf soft nontender bilaterally Results & Data Vital Signs (Past 12 Hours) Vital Signs Temp Pulse Resp BP Pulse Ox O2 Del Method 04/13/24 07:11 36.5 C 64 16 135/84 98 Room Air 04/12/24 20:59 36.7 C 76 16 120/75 96 Room Air Queries Orthopedic Spine Obesity: Yes
[2024-04-13] MEDS: LISINOPRIL/HCTZ 20/25MG 1 TAB PO SCH (08:48)
--- NOTE | 2024-04-13 10:23 | Hospitalist Progress Note ---
Date of Service April 13, 2024 Assessment & Plan (1) Neurogenic claudication due to lumbar spinal stenosis: (2) S/P lumbar spine operation: (3) Hypertension: (4) Hyperlipidemia: (5) GERD (gastroesophageal reflux disease): (6) Sleep apnea: Plan Robert Humphreys is a 63y/o M with PMHx of dyslipidemia, prediabetes, MARGIE on CPAP, HTN, morbid obesity, GERD, tobacco use disorder and other problems listed below who was referred to our [facility] for post-operative medical management after undergoing L5-S1 decompression and fusion with Dr. Bernard for treatment of neurogenic claudication due to lumbar spinal stenosis. #Neurogenic Claudication 2/2 Lumbar Spinal Stenosis #S/P Lumbar Spine Operation POD#3 s/p L5-S1 decompression and fusion with Dr. Bernard. Per ortho for pain control, wound care, DVT prophylaxis and activities and dispo sition. Continue incentive spirometry, PT/OT when appropriate as per ortho team. Plan for discharge tomorrow #Acute blood loss anemia, 2/2 post op losses EBL: 400mL & Pre-Op Hgb: 14.9 [04/03/24],down to 11.6, VS stable No further trending necessary #HTN-resume home amlodipine and lisinopril/hctz #Dyslipidemia- continue statin #MARGIE on CPAP- Can continue CPAP HS, ordered. #GERD- On famotidine [employer], can continue. 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 Plan to start eliquis 2.5mg BID after 72 hours post op, plan to start 08/05 in evening Script sent to pharmacy DVT Prophylaxis: SCDs/TEDs - As per primary orthopedic team. Code Status: FULL CODE PCP: Robert Szymanski MD Disposition: per primary orthopedic team. Thank you for this consultation. We will follow the patient with you during their hospital stay. You can reach a member of the [facility] Team 02/04 via [employer]. I spent a total of 45 minutes coordinating, documenting, and providing care for this patient excluding time spent in the performance of separately billed services. This included personally reviewing all current laboratories and imaging studies, medical reconciliation, outpatient chart review and discussion with specialists. Admission and Anticipated Discharge Date Admission Date: April 11, 2024 Subjective NAEO Reports concern over DVT hx, discussed plan to start low dose Eliquis and to continue mobilization Patient states pain is controlled and denies any acute concerns Physical Exam Constitutional: WD/WN, vitals as above Respiratory: normal respiratory effort, lungs clear to auscultation Cardiovascular: RRR, no murmur, no edema Gastrointestinal (Abdomen): normal bowel sounds, soft, nontender, no hepatosplenomegaly Results & Data Results & Data Vital Signs (Past 12 Hours) Vital Signs Temp Pulse Resp BP Pulse Ox O2 Del Method 04/13/24 07:11 36.5 C 64 16 135/84 98 Room Air Laboratory Results Short CBC 04/13/24 Range/Units 05:54 Hgb 11.6 L (14.0-18.0) g/dl Hct 35.4 L (42.0-52.0) % Medications Administered Home Medications Medication Instructions Recorded Confirmed Last Taken acetaminophen 500 mg capsule 1,000 mg PO Q6H PRN Pain 04/01/24 04/11/24 04/11/24 06:30 amlodipine 2.5 mg tablet (Norvasc) 2.5 mg PO HS 04/01/24 04/11/24 04/10/24 20:00 ascorbic acid (vitamin C) 1,000 mg 1 g PO QAM 04/01/24 04/11/24 04/03/24 tablet (Vitamin C) aspirin 81 mg tablet,delayed 81 mg PO QAM 04/01/24 04/11/24 04/10/24 08:00 release cetirizine 10 mg tablet (Zyrtec) 10 mg PO QAM 04/01/24 04/11/24 04/10/24 20:00 cholecalciferol (vitamin D3) 25 25 mcg PO QAM 04/01/24 04/11/24 04/10/24 20:00 mcg (1,000 unit) tablet (Vitamin D3) cyclobenzaprine 10 mg tablet 10 mg PO TID 04/01/24 04/11/24 04/11/24 06:30 diclofenac sodium 1 % topical gel 2 g topical QID PRN Pain 04/01/24 04/11/24 04/08/24 diclofenac sodium 75 mg 75 mg PO BID 04/01/24 04/11/24 04/04/24 tablet,delayed release escitalopram oxalate 10 mg tablet 10 mg PO QAM 04/01/24 04/11/24 04/11/24 06:30 (Lexapro) famotidine 40 mg tablet (Pepcid) 40 mg PO HS 04/01/24 04/11/24 04/10/24 20:00 lidocaine 5 % topical patch 1 patch topical DAILY PRN Pain 04/01/24 04/11/24 04/04/24 lisinopril 20 1 tab PO QAM 04/01/24 04/11/24 04/10/24 08:00 mg-hydrochlorothiazide 25 mg tablet metronidazole 0.75 % topical gel 1 applic topical DAILY PRN rosacea 04/01/24 04/11/24 01/15/24 pregabalin 50 mg capsule (Lyrica) 50 mg PO BID 04/01/24 04/11/24 04/11/24 06:30 simvastatin 10 mg tablet 10 mg PO HS 04/01/24 04/11/24 04/10/24 20:00 oxycodone 5 mg tablet 5 mg PO Q6H PRN pain #30 tabs 04/12/24 Unknown tramadol 50 mg tablet 50 mg PO Q6H PRN pain, moderate 04/12/24 Unknown #30 tabs apixaban 2.5 mg tablet (Eliquis) 2.5 mg PO BID #90 tabs 04/13/24 Unknown Active Medications Generic Name Dose Route Start Last Admin Trade Name Freq PRN Reason Stop Dose Admin Acetaminophen 1,000 mg 04/11/24 14:26 04/12/24 20:44 Acetaminophen 500 Mg Tab PO 05/11/24 14:25 1,000 mg Q8H PRN Administration MILD Pain Scale 1,2,3 & Pre PT Amlodipine Besylate 2.5 mg 04/11/24 21:00 04/12/24 20:38 Amlodipine Besylate 5 Mg Tab PO 05/11/24 20:59 2.5 mg HS JADEN Administration Ascorbic Acid 1,000 mg 04/12/24 09:00 04/13/24 08:47 Ascorbic Acid 500 Mg Tab PO 05/12/24 08:59 1,000 mg QAM JADEN Administration Aspirin 81 mg 04/12/24 09:00 04/13/24 08:48 Aspirin 81 Mg Ectab PO 05/12/24 08:59 81 mg QAM JADEN Administration Cetirizine HCl 10 mg 04/12/24 09:00 04/13/24 08:48 Cetirizine Hcl 10 Mg Tablet PO 05/12/24 08:59 10 mg QAM JADEN Administration Diclofenac Sodium 75 mg 04/11/24 21:00 04/13/24 08:48 Diclofenac Sodium 75 Mg Tabcr PO 05/11/24 20:59 75 mg BID JADEN Administration Escitalopram Oxalate 10 mg 04/12/24 09:00 04/13/24 08:47 Escitalopram Oxalate 10 Mg Tab PO 05/12/24 08:59 10 mg QAM JADEN Administration Famotidine 40 mg 04/11/24 21:00 04/12/24 20:39 Famotidine 40 Mg Tablet PO 05/11/24 20:59 40 mg HS JADEN Administration Lisinopril/HCTZ 1 tab 04/12/24 09:00 04/13/24 08:48 Lisinopril/Hctz 20/25mg 1 Tab PO 05/12/24 08:59 1 tab QAM JADEN Administration Dexamethasone 6 mg/ Syringe 1.5 mls @ 1 mls/min 04/12/24 09:00 04/13/24 08:47 IV 04/14/24 09:02 1 mls/min DAILY JADEN Administration Pregabalin 50 mg 04/11/24 21:00 04/13/24 08:47 Pregabalin 50 Mg Cap PO 05/11/24 20:59 50 mg BID JADEN Administration Senna/Docusate Sodium 2 tab 04/11/24 21:00 04/12/24 20:39 Docusate Sodium/Senna 50/8.6mg Tab PO 05/11/24 20:59 2 tab HS JADEN Administration Simvastatin 10 mg 04/11/24 21:00 04/12/24 20:39 Simvastatin 10 Mg Tab PO 05/11/24 20:59 10 mg HS JADEN Administration Tramadol HCl 50 - 100 mg 04/11/24 14:26 04/12/24 10:17 Tramadol Hcl 50 Mg Tablet PO 05/11/24 14:25 50 mg Q4H PRN Administration Moderate-Severe pain & Pre PT Vitamin D 25 mcg 04/12/24 09:00 04/13/24 08:48 Cholecalciferol 25 Mcg (1000 Units) Tab PO 05/12/24 08:59 25 mcg QAM JADEN Administration
--- NOTE | 2024-04-14 10:48 | Hospitalist Progress Note ---
Date of Service April 14, 2024 Assessment & Plan (1) Neurogenic claudication due to lumbar spinal stenosis: (2) S/P lumbar spine operation: (3) Hypertension: (4) Hyperlipidemia: (5) GERD (gastroesophageal reflux disease): (6) Sleep apnea: Plan Robert Humphreys is a 63y/o M with PMHx of dyslipidemia, prediabetes, MARGIE on CPAP, HTN, morbid obesity, GERD, tobacco use disorder and other problems listed below who was referred to our [facility]ist Team for post-operative medical management after undergoing L5-S1 decompression and fusion with Dr. Bernard for treatment of neurogenic claudication due to lumbar spinal stenosis. #Neurogenic Claudication 2/2 Lumbar Spinal Stenosis #S/P Lumbar Spine Operation POD#4 s/p L5-S1 decompression and fusion with Dr. Bernard. Per ortho for pain control, wound care, DVT prophylaxis and activities and dispo sition. Continue incentive spirometry, PT/OT when appropriate as per ortho team. start low dose eliquis for dvt ppx post op given hx of PE #Acute blood loss anemia, 2/2 post op losses EBL: 400mL & Pre-Op Hgb: 14.9 [04/03/24],down to 11.6, VS stable No further trending necessary #HTN-resume home amlodipine and lisinopril/hctz #Dyslipidemia- continue statin #MARGIE on CPAP- Can continue CPAP HS, ordered. 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 Plan to start eliquis 2.5mg BID after 72 hours post op, plan to start 04/14 in evening Script sent to pharmacy DVT Prophylaxis: SCDs/TEDs - As per primary orthopedic team. Code Status: FULL CODE PCP: Robert Szymanski MD Disposition: per primary orthopedic team. Thank you for this consultation. We will follow the patient with you during their hospital stay. You can reach a member of the [facility] [employer] Hospitalist Team 02/04 via [email or web address]. I spent a total of 45 minutes coordinating, documenting, and providing care for this patient excluding time spent in the performance of separately billed services. This included personally reviewing all current laboratories and imaging studies, medical reconciliation, outpatient chart review and discussion with specialists. Admission and Anticipated Discharge Date Admission Date: April 11, 2024 Subjective Evaluated prior to dispo Reports feeling great and ready to get home Was able to have black pickler low dose eliquis script Denies any new concerns Physical Exam Constitutional: WD/WN, vitals as above Respiratory: normal respiratory effort, lungs clear to auscultation Cardiovascular: RRR, no murmur, no edema Musculoskeletal: no cyanosis or clubbing, extremities motor strength 5/5 Neurologic: PERRL, EOMI, accommodation nl, no face palsy, no dysarthria Results & Data Results & Data Vital Signs (Past 12 Hours) Vital Signs Temp Pulse Resp BP Pulse Ox O2 Del Method 04/14/24 08:45 36.6 C 62 21 146/87 H 97 Room Air 04/14/24 07:16 36.6 C 65 16 130/85 97 Room Air Medications Administered Home Medications Medication Instructions Recorded Confirmed Last Taken acetaminophen 500 mg capsule 1,000 mg PO Q6H PRN Pain 04/01/24 04/11/24 04/11/24 06:30 amlodipine 2.5 mg tablet (Norvasc) 2.5 mg PO HS 04/01/24 04/11/24 04/10/24 20:00 ascorbic acid (vitamin C) 1,000 mg 1 g PO QAM 04/01/24 04/11/24 04/03/24 tablet (Vitamin C) aspirin 81 mg tablet,delayed 81 mg PO QAM 04/01/24 04/11/24 04/10/24 08:00 release cetirizine 10 mg tablet (Zyrtec) 10 mg PO QAM 04/01/24 04/11/24 04/10/24 20:00 cholecalciferol (vitamin D3) 25 25 mcg PO QAM 04/01/24 04/11/24 04/10/24 20:00 mcg (1,000 unit) tablet (Vitamin D3) cyclobenzaprine 10 mg tablet 10 mg PO TID 04/01/24 04/11/24 04/11/24 06:30 diclofenac sodium 1 % topical gel 2 g topical QID PRN Pain 04/01/24 04/11/24 04/08/24 escitalopram oxalate 10 mg tablet 10 mg PO QAM 04/01/24 04/11/24 04/11/24 06:30 (Lexapro) famotidine 40 mg tablet (Pepcid) 40 mg PO HS 04/01/24 04/11/24 04/10/24 20:00 lidocaine 5 % topical patch 1 patch topical DAILY PRN Pain 04/01/24 04/11/24 04/04/24 lisinopril 20 1 tab PO QAM 04/01/24 04/11/24 04/10/24 08:00 mg-hydrochlorothiazide 25 mg tablet metronidazole 0.75 % topical gel 1 applic topical DAILY PRN rosacea 04/01/24 04/11/24 01/15/24 pregabalin 50 mg capsule (Lyrica) 50 mg PO BID 04/01/24 04/11/24 04/11/24 06:30 simvastatin 10 mg tablet 10 mg PO HS 04/01/24 04/11/24 04/10/24 20:00 oxycodone 5 mg tablet 5 mg PO Q6H PRN pain #30 tabs 04/12/24 Unknown tramadol 50 mg tablet 50 mg PO Q6H PRN pain, moderate 04/12/24 Unknown #30 tabs apixaban 2.5 mg tablet (Eliquis) 2.5 mg PO BID #90 tabs 04/13/24 Unknown
--- NOTE | 2024-04-14 11:18 | Discharge Summary ---
Date of Service April 14, 2024 Admission HPI Per Admitting Provider This is a 63-year-old male presents with chronic persistent back and leg pain and failing since course of nonoperative care is here for surgical invention. Principal Diagnosis Lumbar spinal stenosis with neurogenic claudication Discharge Data Allergies Allergy/AdvReac Type Severity Reaction Status Date / Time alprazolam [From Xanax] AdvReac mood Verified 04/11/24 08:58 changes, angry, irritated Consultations 04/11/24 14:26 Consult Hospitalist Routine Procedures Performed Operation Date: 04/11/24 10:05 Actual Procedures p L5-S1 Decompression and Fusion, Spinal Cord Monitoring(Not Applicable) - Bruno Bernard DO Ordered Studies 04/11/24 07:00 [place] lumbar spine 2-3V Routine Hospital Course (1) Neurogenic claudication due to lumbar spinal stenosis: Patient with lumbar decompression fusion trial as well as taken to orthopedic for postoperative. Postoperatively he progressed appropriately leg pain markedly improved. DON drain decreasing appropriately. Excellent strength testing. Pain well-controlled. Subsidy discharged home. Discharge orders instructions from the chart for further review. Total Time Total Time Spent Total Time Spent (In Minutes): 20 minutes Discharge Plan Discharge Items Patient Disposition: Home - Self-Care Reason For Visit: Lumbar Region Spondylolisthesis, Bilateral Lumbar Discharge Diagnosis: Lumbar spinal stenosis with spondylolisthesis and neurogenic claudication Activity: As commented below Non-emergency contact: Primary Care Provider Call non-emergency contact if: you have any medication questions Follow-up/Referrals: Robert Szymanski MD [Primary Care Provider] - Diet: Regular Addtl Attending Provider Instructions: ACTIVITY RECOMMENDATIONS: SELF CARE INSTRUCTIONS AFTER THORACIC/LUMBAR FUSIONS 1. You may walk to your tolerance. It is good exercise for your legs and back. Expect some back and intermittent leg aches and pains. 2. You may perform "counter-top" level activities (make a sandwich, kike with a project, etc.). 3. No bending or lifting of more than 10 pounds or back twisting of any nature (roll like a log when turning in bed). 4. You may ride in a car for 20-30 minutes at a time. No driving until after your first visit with your doctor. 5. Frequent changes of position and restricting sitting to 30 minutes at a time will help limit the amount of back spasms and stiffness you may experience. 6. You may discontinue the use of ambulatory aids (cane, crutches, etc.) once your strength and confidence allow. 7. You may culinary artist the shower and let water strike your incision when you arrive home at least once daily. Do not take a tub bath, sit in a hot tub or go into a swimming pool until after your first recheck in the office. SPECIAL CARE INSTRUCTIONS: VERY IMPORTANT TO READ AND REVIEW A. Your surgical incision has been closed with a cosmetic suture under the skin that will dissolve in about 6 weeks. In 14 days, you can use a pair of clean scissors and cut the suture that is left outside of the skin at the ends of your incision. 1. The small skin tapes can be removed 7 days after surgery if they have not fallen off by that point. 2. You may keep the wound open to air as much as possible to promote healing after post-op day number 5 unless told otherwise by your doctor. 3. If you think the wound looks like it is becoming infected (redness or worsening drainage) and/or you are experiencing fever, chill or worsening back pain and muscle spasms, contact the office so that we may evaluate you as soon as possible. B. Complications are uncommon, but please contact us if you have any signs or symptoms of: 1. wound infection (fever higher than 102.5 degrees F, redness, separation of wound, drainage, or increasing pain from the incision) 2. blood clots in legs (pain, swelling, redness and warmth in legs) 3. urinary tract infection (fever higher than 102.5 degrees F, burning upon urination or increased frequency of urination) 4. nerve problems (inability to walk on your toes or heels, numbness, loss of bowel or bladder control) 5. any other symptoms that concern you C. Please call the office at if you have any concerns or questions about your operation or recovery. D. No smoking! Smoking drastically decreases the chance of a solid fusion. E. Do not take any anti-inflammatory medications (Indocin, Advil, Motrin, Aspirin, Naprosyn, etc.) as these may inhibit the chance of a solid fusion. Tylenol is okay to take for pain. MANAGING PAIN AFTER SPINAL SURGERY 1. Narcotic medication is intended for short-term use and will be provided for surgical pain. Surgical pain usually lasts for a period of 4-6 weeks. Narcotic medication includes Percocet, Vicodin, Darvocet, Tylenol #3 or Lortab. 2. Longer-term pain is more appropriately treated with non-narcotic medication such as Tylenol ES. 3. Muscle spasm is not appropriately treated with narcotics. Muscle relaxers such as Soma, Flexeril or Skelaxin can be used along with Tylenol ES. 4. Remember that we all live with some "aches and pains". This is not unusual or uncommon after an injury or as we get older. a. Back pain is expected and may include muscle spasms for 4 to 6 weeks after surgery. The pain should gradually improve. If the pain worsens for no apparent reason, please contact the office. b. Intermittent leg pain may also be experienced and should not be concerned about unless it worsens for no apparent reason. If so, please contact the office. 5. We will provide appropriate medication within the normal guidelines of their prescribed use. We will also be very cautious and aware of potential abuse and extended duration of patients' medication needs. a. Pain medications are for your comfort and to assist with sleep and rest so that the tissue can heal. They are not provided in order to return to normal activity and should not be used through the day. To do so or worsening pain at night can result from ongoing tissue damage and development of tolerance to the prescribed medicine. 6. Please allow 2-3 days to process refills. Prescriptions will not be mailed but must be picked up at the office. FOLLOW UP VISIT: Keep your scheduled follow-up appointment. Any questions, please call the office at . Pending Studies at Discharge: No Stand-Alone Forms: [facility], Pain - Opioid Pain Management, Smoking Cessation Medications and DC Order Prescriptions: New tramadol 50 mg tablet 50 mg PO Q6H PRN (Reason: pain, moderate) Qty: 30 0RF oxycodone 5 mg tablet 5 mg PO Q6H PRN (Reason: pain) Qty: 30 0RF Eliquis 2.5 mg tablet 2.5 mg PO BID Qty: 90 0RF Continued amlodipine [Norvasc] 2.5 mg Tablet 2.5 mg PO HS cyclobenzaprine 10 mg Tablet 10 mg PO TID ascorbic acid (vitamin C) [Vitamin C] 1,000 mg Tablet 1 g PO QAM cetirizine [Zyrtec] 10 mg Tablet 10 mg PO QAM famotidine [Pepcid] 40 mg Tablet 40 mg PO HS simvastatin 10 mg Tablet 10 mg PO HS aspirin 81 mg Tablet,Delayed Release (Dr/Ec) 81 mg PO QAM lidocaine 5 % Adhesive Patch,Medicated 1 patch TOPICAL DAILY PRN (Reason: Pain) Rx Instructions: leave on most painful area for up to 12 hrs lisinopril-hydrochlorothiazide 20-25 mg Tablet 1 tab PO QAM acetaminophen 500 mg Capsule 1,000 mg PO Q6H PRN (Reason: Pain) metronidazole 0.75 % Gel 1 applic TOPICAL DAILY PRN (Reason: rosacea) escitalopram oxalate [Lexapro] 10 mg Tablet 10 mg PO QAM pregabalin [Lyrica] 50 mg Capsule 50 mg PO BID cholecalciferol (vitamin D3) [Vitamin D3] 25 mcg (1,000 unit) Tablet 25 mcg PO QAM diclofenac sodium 1 % Gel 2 g TOPICAL QID PRN (Reason: Pain) Rx Instructions: apply to single elbow, wrist or hand; for hand includes palm/fingers/back of hand Discontinued diclofenac sodium 75 mg Tablet,Delayed Release (Dr/Ec) 75 mg PO BID Discharge Orders: Discharge Order (Routine); Ordered 04/14/24 Ordered By: Bruno Leon/Other Patient Handouts: Back Surg Daily Living Tips Admission Data Admit Date/Time: 04/11/24 12:25 Attending Provider: Bruno Bernard Admit Provider: Bruno Bernard Primary Care Provider: Robert Szymanski Other Providers: Asha Persaud Other Interventions: Discharge Summary Assessment (RN) Last Done: 04/14/24 10:05
== END 2024-04-14 10:43 | disposition home or self-care (01) | DRG 454 ==
LOC: ASU 07:56 → 3W 12:25